=== PATIENT | male | born 1945 | race Caucasian/White ===

== ENCOUNTER → 2016-04-29 | Outpatient (CLI) | payer OTHER, BC ==
[~2016-04-29] MED LIST: ASPI81TA28 PO; ATOR-24 PO; FERR325T51 PO; FURO-85 PO; GUAI1TAB69 PO; LEVO1TAB35 PO; LSN20 PO; MAGN400T6 PO; NITR0.4S UT; OMEGCAP2 PO; OXYC-57 PO; PANT40TA PO; RIVA1TAB4 PO; TPRSR/25 PO
[2016-04-29 13:28] VITALS: BP_SYST 111; BP_SYST 86; BP_DIAS 54; BP_DIAS 59; PULSE 44; TEMP 36.8; O2SAT 93
--- NOTE | 2016-04-29 16:40 | Radiation Oncology Follow-Up ---
Radiation Oncology Follow-Up Date of Visit Apr 29, 2016. 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 Mcdowell is a 71-year-old gentleman with a previous diagnosis of stage IIIA non-small cell lung carcinoma treated with chemotherapy and radiation therapy which completed in October 2014. He subsequently received 2 cycles of adjuvant carboplatin/Taxol chemotherapy underneath the supervision of Dr. Shukla. We are now seeing the patient in follow-up evaluation. Overall, the patient is doing relatively well. He states he has no difficulty with shortness of breath, hemoptysis, fevers, chills or night sweats. He states that his weight is stable. His appetite is good. He denies any dysphagia. He has no other complaints. He did mention he recently had a PET/CT scan done in was already alerted about the results. He is scheduled to see Dr. Shukla in August 2016. Allergies Coded Allergies: No Known Allergies (Verified , 11/20/15) Home Medications Scheduled Aspirin (Aspirin Ec), 81 MG PO QAM Atorvastatin (Lipitor), 40 MG PO HS Ferrous Sulfate (Iron Supplement), 325 MG PO Q2D Furosemide (Lasix), 20 MG PO Q2D Lisinopril (Lisinopril), 20 MG PO QAM Magnesium Oxide (Mag-Ox), 400 MG PO Q2D Metoprolol Succinate (Metoprolol Succinate ER), 25 MG PO QAM [place]-3 Fatty Acids (Fish Oil), 1 CAP PO HS Rivaroxaban (Xarelto), 20 MG PO QPM Scheduled PRN Nitroglycerin (Nitrostat), 0.4 MG UT UD PRN for Chest Pain Review of Systems Gastrointestinal: Symptoms: WNL Oral: Symptoms: No Problems Respiratory: Symptoms: WNL Urinary: Symptoms: WNL Skin: Symptoms: No Problems Physical Exam Vital Signs Date Time Temp Pulse Resp B/P Pulse Ox O2 Delivery O2 Flow Rate FiO2 04/29/16 13:28 36.8 44 16 86/54 93 111/59 Pain: Side: Left Pain Location: None Patient Pain Scale: 0 - 10 Initial Pain Intensity: 1.0 General Appearance: WD/WN, no apparent distress Eyes: normal inspection ENT: normal ENT inspection, hearing grossly normal, TMs normal Neck: supple, no adenopathy Respiratory/Chest: chest non-tender, lungs clear, normal breath sounds, no respiratory distress Cardiovascular: regular rate, rhythm, no edema, no gallop, no JVD Neurologic/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: 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 as tested, no motor/sensory deficits, alert, normal mood/affect, oriented x 3 Laboratory Studies Test 04/02/16 08:45 White Blood Count 6.13 K/uL (4.8-10.8) Red Blood Count 4.77 M/uL (4.7-6.1) Hemoglobin 14.5 g/dL (14.0-18.0) Hematocrit 42.7 % (42-52) Mean Corpuscular Volume 89.5 fL (80-100) Mean Corpuscular Hemoglobin 30.4 pg (25-34) Mean Corpuscular Hemoglobin Concent 34.0 g/dl (32-36) RDW Standard Deviation 44.8 fL (36.4-46.3) RDW Coefficient of Variation 13.7 % (11.5-14.5) Platelet Count 205 K/uL (130-400) Mean Platelet Volume 10.0 fL (7.4-10.4) Sodium Level 142 mmol/L (136-145) Potassium Level 4.1 mmol/L (3.5-5.1) Chloride Level 107 mmol/L (98-107) Carbon Dioxide Level 27 mmol/L (21-32) Anion Gap 8.0 mmol/L (3-11) Blood Urea Nitrogen 28 mg/dl (7-18) Creatinine 1.30 mg/dl (0.60-1.40) Estimated GFR () 64.5 Estimated GFR (Non- 55.7 BUN/Creatinine Ratio 21.5 (10-20) Random Glucose 109 mg/dl (70-99) Calcium Level 9.6 mg/dl (8.5-10.1) Total Bilirubin 0.8 mg/dl (0.2-1) Aspartate Amino Transferase (AST) 20 U/L (15-37) Alanine Aminotransferase (ALT) 25 U/L (12-78) Alkaline Phosphatase 69 U/L (45-117) Total Protein 7.6 gm/dl (6.4-8.2) Albumin 4.2 gm/dl (3.4-5.0) Globulin 3.4 gm/dl (2.5-4.0) Albumin/Globulin Ratio 1.2 (0.9-2) Triglycerides Level 102 mg/dl (0-150) Cholesterol Level 117 mg/dl (0-200) HDL Cholesterol 37 mg/dl LDL Cholesterol, Calculated 60 mg/dl VLDL Cholesterol, Calculated 20 mg/dl Cholesterol/HDL Ratio 3.2 Additional Studies XAM PET CT SKULL BASE TO MID THIGH - 03/26/2016 1:06 pm HISTORY Lung cancer, status post chemo radiation. Subsequent treatment strategy. DATE OF DICTATION:03/26/2016 COMPARISON PET/CT 09/26/2015. TECHNIQUE Following the intravenous administration of approximately 14.2 mCi of FDG 18 and the oral administration of Gastroview, PET/CT imaging was performed from the skull base to the mid thighs 70 minutes following the radiotracer injection. The patient's glucose level at the time of radiotracer injection was 139 mg/dL. This is a follow up PET/CT for the above indication. FINDINGS Head / Neck: No hypermetabolic lesion is identified. Punctate calcifications/ calculi are identified in the bilateral palatine tonsils. Chest: No hypermetabolic lesion is identified. The background activity is again noted in postradiation fibrosis in the left lung perihilar region, involving the left upper lobe and superior segment of left lower lobe. Unchanged mild atelectasis/fibrosis in the medial aspect of the right lung. There is background activity in small left pleural effusion which is new. Redemonstration of a small to moderate pericardial effusion, not significantly changed. Redemonstration of epicardial calcification in the lateral wall of the left ventricle. Vascular calcification is again noted in the coronary arteries and aorta. There is a left upper chest wall port terminating in the SVC. Abdomen: No hypermetabolic lesion is identified. No evidence of lymphadenopathy, ascites, hydronephrosis or bowel obstruction. Diffuse calcific plaque in the aorta. 2.6 cm ectasia of the infrarenal aorta. Pelvis: No hypermetabolic lesion is identified. No pelvic lymphadenopathy or ascites. Small right hydrocele. Musculoskeletal / Other: No hypermetabolic lesion is identified. Old fracture of right posterior 11th rib. Mild diffuse degenerative changes in spine. IMPRESSION No evidence of metabolically active recurrent disease. Post radiation therapy changes in the left lung. Small left pleural effusion, new. Small to moderate pericardial effusion, unchanged. Assessment & Plan Mr. Mcdowell is a 71-year-old gentleman who presents with locally advanced non- small cell lung carcinoma treated with chemotherapy and radiation therapy which completed in October 2014 followed by adjuvant chemotherapy underneath the supervision of Dr. Shukla. The patient has done well and most recently had a PET /CT scan completed in March 2016 which shows no evidence of disease. We are happy with the patient's progress overall. The patient has tolerated with minimal late side effects from radiation therapy. The patient is scheduled to see Dr. Shukla in August 2016 who is ordering his scans routinely. At this point, we have recommended the patient continue to see a physician every 4-6 months regarding his lung cancer management and surveillance. We will see the patient back in one year since he continues to follow closely with Dr. Shukla for medical oncology. I encouraged the patient to call me with any questions or concerns or if he would like to be seen earlier. Total Time In Follow-Up I spent 20 minutes examining and counseling the patient. I spent 15 minutes completing this note. Copy To Rico Neff M.D.; Rusty Shukla M.D.
== END | disposition home or self-care (01) ==
LOC: C.ONC 13:03
PROVIDERS: ATTEND Radiology Radiation Oncology
DX: Z08 Encounter for follow-up examination after completed treatment for malignant neoplasm (principal); Z92.3 Personal history of irradiation; Z85.118 Personal history of other malignant neoplasm of bronchus and lung

== ENCOUNTER → 2017-04-30 | Outpatient (CLI) | payer OTHER, BC ==
[~2017-04-30] MED LIST changes: -GUAI1TAB69 PO; -LEVO1TAB35 PO; -OXYC-57 PO; -PANT40TA PO
[2017-04-30 13:28] VITALS: BP 108/61; PULSE 48; TEMP 36.9; O2SAT 96
--- NOTE | 2017-04-30 14:57 | Radiation Oncology Follow-Up ---
Radiation Oncology Follow-Up Date of Visit Apr 30, 2017. 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 Mcdowell fell on the ice in March of 2014. He presented to the emergency department where chest x-ray was performed and fractured ribs were found. Also noted were pulmonary nodules. This prompted a CT scan of the chest performed on 2013. This was without contrast. This showed a 1.1 cm lobulated nodule within the left upper lobe and an indeterminate 4 mm nodule within the right upper lobe. Additional studies were recommended. A PET/ CT scan was subsequently performed on 04/19/2014. This showed no significant FDG uptake within the previously described 1.1 cm left upper lobe nodule that was less conspicuous than on the previous study. A 3 mm left upper lobe nodule and a 4 mm right upper lobe nodule were felt to be too small to evaluate pet imaging. There is marked left infrahilar FDG uptake with an SUV max of 14.6 that could reflect harry uptake without pathologically enlarged nodes identified. There is mild FDG uptake within a minimally enlarged aortopulmonary window lymph node measuring 1.1 cm and an SUV max of 7.2. There is moderate FDG uptake within a precarinal lymph node measuring 0.7 cm an SUV max of 7.5. No suspicious uptake is noted in the abdomen and pelvis or in the musculoskeletal system. He was subsequently noted however that the IV infiltrated and the patient was reinjected which may have altered the SUV values. The patient was sent to the pulmonary clinic at [facility] for further evaluation and diagnostic workup. On patient underwent a bronchoscopy and a bus evaluation. This revealed hilar adenopathy on the left side, paratracheal adenopathy. A biopsy of the left paratracheal for L lymph node was performed. This was positive for squamous cell carcinoma. Immunohistochemical assay was demonstrating the tumor cells are strongly and diffusely positive for PE 40 and negative for TTF-1 and CK 7. Patient was subsequently evaluated by to see if surgery was a and option. Patient was also seen by Dr. Rusty Shukla for medical oncology evaluation. Following the NCCN Guidelines the patient was felt to have at least a clinical stage IIIa disease consisting of a clinical T1 a, pN 2 M0 disease. A brain scan was recommended and a MRI was performed and was negative for metastatic disease. Based on these findings and after presentation at the multidisciplinary lung cancer clinic tumor conference he was not felt to be a surgical candidate. Recommendation was for consideration of primary chemoradiation. Dr. Shukla is recommending weekly Taxol and carboplatin during the radiation followed by 2 cycles of Taxol and carboplatin following the completion of his radiation. He completed radiation therapy 09/13/2014. This was combined with weekly Taxol and carboplatin. He tolerated this well and went on to have adjuvant chemotherapy that completed 11/03/2014. Interim History He is been doing well over this past year. He denies any changes respiratory status. He has no increasing shortness of breath. No problems with chronic cough. 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 This is unchanged. He has had follow-up visits with medical oncology and had a recheck PET CT scan in March. PET scans have been rechecked every 6 months. There was no evidence of metastatic disease or recurrence. He'll now be followed by Dr. Collazo in medical oncology. His appetite is good and weight is stable. Allergies Coded Allergies: No Known Allergies (Verified , 11/20/15) Home Medications Scheduled Aspirin (Aspirin Ec), 81 MG PO QAM Atorvastatin (Lipitor), 40 MG PO HS Ferrous Sulfate (Iron Supplement), 325 MG PO Q2D Furosemide (Lasix), 20 MG PO Q2D Lisinopril (Lisinopril), 20 MG PO QAM Magnesium Oxide (Mag-Ox), 400 MG PO DAILY Metoprolol Succinate (Metoprolol Succinate ER), 25 MG PO QAM [facility]-3 Fatty Acids (Fish Oil), 1 CAP PO HS Rivaroxaban (Xarelto), 20 MG PO QPM Scheduled PRN Nitroglycerin (Nitrostat), 0.4 MG UT UD PRN for Chest Pain Review of Systems Gastrointestinal: Symptoms: WNL Oral: Symptoms: No Problems Respiratory: Symptoms: WNL Urinary: Symptoms: WNL Skin: Symptoms: No Problems Physical Exam Vital Signs Date Time Temp Pulse Resp B/P (MAP) Pulse Ox O2 Delivery O2 Flow Rate FiO2 04/30/17 13:28 36.9 48 16 108/61 96 Fatigue: None General Appearance: no apparent distress Eyes: normal inspection, EOMI ENT: normal ENT inspection, hearing grossly normal Neck: no adenopathy, thyroid normal Respiratory/Chest: lungs clear, no respiratory distress, no accessory muscle use, + decreased breath sounds Cardiovascular: no gallop, no murmur, + irregularly irregular Abdomen: non tender, soft, no organomegaly Extremities: no pedal edema Neurologic/Psychiatric: no motor/sensory deficits, alert, normal mood/affect Skin: warm/dry Pain Management Patient Reports Pain: No Pain Location: None Patient Preferred Pain Scale: 0 - 10 Initial Pain Intensity: 0.0 Pain Management Plan He denies pain therefore requires no pain management. Laboratory Laboratory Results: not applicable Pathology Pathology Results: not applicable Imaging Imaging Studies: were reviewed, and pertinent findings noted below Imaging Comments Results PET CT, SKULL BASE TO MID-THIGH [77561.33 (CPT)] (Spec. #[id number]) (Order [id number]) Date/Time of Imaging Study Study Completed: 03/18/2017 10:49 AM [employer] PACS Image Narrative EXAM PET CT SKULL BASE TO MID THIGH FDG - 03/18/2017 10:49 am HISTORY 72-year-old man, followup non-small cell lung carcinoma status post chemoradiation therapy. COMPARISON Multiple prior FDG PET/CT scans, the most recent dated 09/17/2016 and the most remote dated 04/19/2014. TECHNIQUE Following the intravenous injection of 9.14 millicuries of F-18 FDG via the right antecubital vein, PET imaging was performed with CT attenuation from the skull base through the mid thigh. Imaging was performed 60 minutes after injection of the radiopharmaceutical. Nondiagnostic transaxial CT images were obtained through the neck, chest, abdomen and pelvis for the purposes of attenuation correction and anatomic localization. The patient's glucose level at the time of the injection was 130 mg/dl. FINDINGS PET: Head/Neck: Mild uptake in the palatine tonsils, may be inflammatory or physiologic appear Physiologic FDG activity is otherwise present within the visualized brain, salivary glands, and pharyngeal mucosa. No metabolically active cervical lymphadenopathy. Chest: No abnormal metabolically active disease in the left hilum. Notable resolution of previously seen left atrial appendage FDG avidity. No metabolically active pulmonary nodules. No metabolically active axillary, hilar, or mediastinal lymphadenopathy. Abdomen/Pelvis: Physiologic FDG activity is present within the gastrointestinal and genitourinary system. No metabolically active abdominal or pelvic lymphadenopathy. No metabolically active intraperitoneal mass. Musculoskeletal: No abnormal focal FDG activity localizes to the bones. No aggressive osseous abnormality. Patchy polyarticular uptake in a degenerative/inflammatory pattern. CT: CT NECK: Cervical spine spondylitic changes, incompletely evaluated. Carotid atherosclerotic disease. Chronic bilateral palatine tonsil calcifications. CT CHEST: Left chest wall MediPort terminating in the lower SVC. Stable posttreatment related changes in the left lung and hilum including left lower lobe volume loss, bronchiectasis and replacement with confluent soft tissue. There are scattered left upper lobe pulmonary nodules and ill-defined ground-glass opacities, most notably a 6 mm nodule on image #[id number], similar to the 09/26/2015 study. Mild biapical emphysematous changes. Stable moderate volume pericardial effusion. Aortic root calcifications. Calcific coronary artery and aortic atherosclerotic disease. Stable epicardial calcifications in the lateral free wall of the left ventricle. Old right posterolateral 11th rib fracture. Stable gynecomastia. CT ABDOMEN/PELVIS: Small hiatal hernia. Small bowel anastomotic segment again noted. Inferior splenule. Mildly enlarged central and right lower quadrant mesenteric root lymph nodes are stable over multiple prior examinations. Stable right hydrocele. Stable prostatic calcifications. Aortic atherosclerotic calcifications. Anterior abdominal postsurgical changes. Polyarticular degenerative changes. IMPRESSION 1. No evidence of metabolically active malignancy in the chest or metabolically active metastases. 2. Grossly stable posttreatment related changes in the left hilum and left lung. 3. Additional CT findings, as above. I have personally reviewed this examination and agree with the resident/fellow physician's interpretation. Resident Physician: CLIFF VICTOR [[id number]] Radiologist: FLORA VÁQSUEZ MD [[id number]] Authenticated By Authenticating Date Authenticating Time Reading Providers(s) FLORA VÁSQUEZ MD 03-18-2017 12:14 FLORA VÁSQUEZ MD Assessment & Plan Plan: Continue regular follow-up with medical oncology. He'll be seeing Dr. Collazo now that Dr. Shukla has retired. Recheck scanning her medical oncology. PET CTs have been rechecked every 6 months. Continue regular follow-up with his primary care physician. We asked him to return to our office in 1 year. He may call if he has any questions or concerns in the interim. Total Time In Follow-Up I spent 20 minutes speaking to the patient and performing examination. I spent 15 minutes reviewing information and completing this note. Copy To Alena Panchal PA-C; Lokesh Collazo M.D. 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
== END | disposition home or self-care (01) ==
LOC: C.ONC 12:38
PROVIDERS: ATTEND Physician Assistant Medical
DX: Z08 Encounter for follow-up examination after completed treatment for malignant neoplasm (principal); Z92.3 Personal history of irradiation; Z85.118 Personal history of other malignant neoplasm of bronchus and lung

== ENCOUNTER 2018-09-16 08:16 | Inpatient (IN) ==
--- NOTE | 2018-09-16 09:01 | XRay Report ---
XR chest 1V portable CLINICAL HISTORY: Chest pain. COMPARISON STUDY: Chest CT July 30, 2018. Chest radiograph September 14, 2018. FINDINGS: There is no pneumothorax. There are trace bilateral pleural effusions. Moderate enlargement of the cardiac silhouette is unchanged. Interstitial thickening has developed with Rtino B lines. L eft suprahilar opacity appears slightly increased IMPRESSION: 1. Interval development of mild interstitial edema with trace bilateral pleural effusions. Stable enl argement of the cardiac silhouette. 2. Apparent increase in left suprahilar opacity. This favors postradiation change however should be a ssessed on subsequent exams to ensure stability. 3. Interval development of mild left basilar opacity which may reflect atelectasis or pneumonia. Electronically signed by: Charan Hernandez M.D. 09/16/2018 9:00 AM
[2018-09-16 09:06] LABS: INR 1.5 (0.9-1.1); Partial Thromboplastin Ratio 1.3; Prothrombin Time 14.6 Seconds (9.0-12.0)
[2018-09-16 09:08] LABS: Albumin Level 3.7 gm/dl (3.4-5.0); BUN Creatinine Ratio 22.6 (10-20); Calcium 9.6 mg/dl (8.5-10.1); Creatinine Clr Calc Pharmacy 51.3 ml/min; Est GFR (African American) 49.9; Potassium 4.5 mmol/L (3.5-5.1)
[2018-09-16 09:24] LABS: Bilirubin,Total 0.7 mg/dl (0.2-1); Globulin 3.7 gm/dl (2.5-4.0); Total Protein 7.4 gm/dl (6.4-8.2); Troponin I 0.076 ng/ml (0-0.045)
[2018-09-16] MEDS ORDERED: ASPIRIN CHEW 324 MG PO STA (09:37)
[2018-09-16 09:52] LABS: Hematocrit (blood only) 37.1 % (42-52); Hemoglobin 12.8 g/dL (14.0-18.0); Immature Granulocytes # (auto) 0.02 K/uL (0.00-0.02); Immature Granulocytes % (auto) 0.2 %; Lymphocytes # (auto) 0.53 K/uL (1.2-3.4); Lymphocytes % (auto) 4.5 %; Mean Corpuscular Hgb Conc 34.5 g/dL (32-36); Mean Corpuscular Volume 87.1 fL (80-100); Mean Platelet Volume 10.3 fL (7.4-10.4); Monocytes # (auto) 0.32 K/uL (0.11-0.59); Monocytes % (auto) 2.7 %; Neutrophils # (auto) 10.99 K/uL (1.4-6.5); Neutrophils % (auto) 92.6 %; Platelet Count 261 K/uL (130-400); RDW Coefficient of Variation 13.3 % (11.5-14.5); RDW Standard Deviation 42.3 fL (36.4-46.3); Red Blood Count 4.26 M/uL (4.7-6.1); White Blood Count 11.86 K/uL (4.8-10.8)
[2018-09-16] MEDS ORDERED: DOXYCYCLINE HYCLATE 100 MG in DEXTROSE 5% 100 ML IV STA (09:55)
[2018-09-16] MEDS ORDERED: CEFEPIME 2,000 MG/20 ML VIAL IV STA (09:55)
--- NOTE | 2018-09-16 10:56 | History & Physical Report ---
Date of Service September 16, 2018 Assessment & Plan (1) Pneumonia: 73 y/o M Hx systolic CHF, CAD, Afib/flutter, HTN, HLD, lung CA, chronic pericardial effusion. Presents with progressive dyspnea and was mildly hypoxic on arrival to the ER. Reports a productive cough without fevers x 3 weeks which he states followed some sinus congestion. The pt has had dyspnea for several months. This initially led to his R heart cath. It is unclear if his dyspnea is affected by the effusion. A CXR obtained in the ER appears to show a developing effusion in the RLL. Additional labs are notable for mild ARMANDO and an elevated troponin which looks to be chronic. 1) Dyspnea - may be multifactorial. We will treat for PNM with antibiotics and nebs. He takes steroids daily and we have increased his dose. He is assigned to telemetry with an 02 protocol. Sputum cultures are pending. 2) CAD - elevated trop - elevation may be chronic - we will trend and obtain an echo if this trends up - he will continue metoprolol and is anticoagulated with Xarelto. 3) AF/flutter - rate is controlled at 59 - cont metoprolol, Xarelto 4) Reg his pericardial effusion. If his dyspnea and hypoxia do not improve with treatment of a resp source, we would consult cardiology. 5) CHF - mild overload on XR but not clinically - cont Lasix AM 6) Mild ARMANDO - may need to hold diuretic AM if this shows any worsening Full code - Xarelto prophylaxis Total time for this admit including review of labs, meds, imaging, records - discussion with pt and ER attending - 39 min Present on Admission?: Yes History of Present Illness Chief Complaint: Dyspnea Primary Care Provider: MORRO Hopson 73 y/o M Hx systolic CHF, CAD, Afib/flutter, HTN, HLD, lung CA, chronic pericardial effusion. Presents with progressive dyspnea and was mildly hypoxic on arrival to the ER. Reports a productive cough without fevers x 3 weeks which he states followed some sinus congestion. The pt has had dyspnea for several months. This initially led to his R heart cath. It is unclear if his dyspnea is affected by the effusion. A CXR obtained in the ER appears to show a developing effusion in the RLL. Additional labs are notable for mild ARMANDO and an elevated troponin which looks to be chronic. PMH: 1) Systolic CHF - last EF on record 40% 2) Chronic pericardial effusion - R cath 05/25 did not demonstrate hemodynamic significance 3) Afib/flutter - chronic - Xarelto 4) CKD II-III 5) Lung CA - remission since 2013 - treated with chemo and radiation. 6) CAD - MD - stents placed in 2005 and 2007 7) HTN 8) HLD Surgical: Hernia repair Social: Quit smoking 2004 Family: Father due to a CA Mother due to CA and DM Allergies Allergy/AdvReac Type Severity Reaction Status Date / Time No Known Allergies Allergy Verified 09/16/18 10:08 Home Medications Home Medications Medication Instructions Recorded Confirmed Type aspirin [Aspir-81] 81 mg PO QAM 07/30/18 09/16/18 History atorvastatin 40 mg PO HS 07/30/18 09/16/18 History ferrous sulfate 325 mg PO Q2D 07/30/18 09/16/18 History furosemide 40 mg PO QAM 07/30/18 09/16/18 History lisinopril 20 mg PO QAM 07/30/18 09/16/18 History metoprolol succinate 25 mg PO QAM 07/30/18 09/16/18 History omega [id number] oil [Fish Oil] 1 cap PO QAM 07/30/18 09/16/18 History rivaroxaban [Xarelto] 20 mg PO PM 07/30/18 09/16/18 History albuterol sulfate [Ventolin HFA] 2 puff INHALATION Q4H PRN 09/16/18 09/16/18 History colchicine 0.6 mg PO UD 09/16/18 09/16/18 History fluticasone propionate 2 spray INTRANASAL QAM 09/16/18 09/16/18 History guaifenesin [Mucinex] 600 mg PO Q12H PRN 09/16/18 09/16/18 History magnesium oxide 600 mg PO QAM 09/16/18 09/16/18 History prednisone 20 mg PO BID 09/16/18 09/16/18 History Past Med/Surg History Medical History Malignant neoplasm of lung (Chronic) Coronary artery disease (Chronic) Hypertension (Chronic) Cervical radiculopathy (Acute) Contusion of rib on right side (Acute) Corneal abrasion, right (Acute) Epistaxis (Acute) Neutropenia (Acute) Peripheral edema (Acute) Pulmonary nodule, left (Acute) Sensation of foreign body in throat (Acute) 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 (Resolved 05/22/14) "Fall with rib fracture Finding of pulmonary nodules Status post bronchoscopy and biopsy 05/22/2014 squamous cell CA Staging workup reveals clinical stage IIIA Not a surgical candidate Status post combined radiation and chemotherapy Chemotherapy comprised of weekly Taxol and carboplatin Radiation completed 09/13/2014 received 6300 cGy Continued systemic chemotherapy this will complete 11/03/2014" On 10/18/14 14:37 Yusra Barajas wrote "Fall with rib fracture Finding of pulmonary nodules Status post bronchoscopy and biopsy 05/22/2014 squamous cell CA Staging workup reveals clinical stage IIIA Not a surgical candidate Status post combined radiation and chemotherapy Chemotherapy comprised of weekly Taxol and carboplatin Radiation completed 09/13/2014 received 6300 cGy Continued systemic chemotherapy this will complete 11/03/2014" On 09/15/14 17:56 Yusra Barajas wrote "Fall with rib fracture Finding of pulmonary nodules Status post bronchoscopy and biopsy 05/22/2014 squamous cell CA Staging workup reveals clinical stage IIIA Not a surgical candidate Status post combined radiation and chemotherapy Chemotherapy comprised of weekly Taxol and carboplatin Radiation completed 09/13/2014 received 6300 cGy" Thrombocytopenia (Acute) SOB (shortness of breath) (Inactive) Arthritis Borderline diabetic Family History Other Family history non-contributory Social History Preferred Language: Lithuanian Communication Ability: Effective Neurological Surgery Teacher Required: No Beliefs That Will Affect Care: None marital status: Single Current Living Situation: Family current occupational status: retired Feels Safe at Home: Yes Safety Concerns: Feels Safe At This Time Smoking Status: Former smoker Tobacco Type: cigarettes Cigarettes Per Day: 40 Do You Dip or Chew Tobacco: No Smoking End Date: 2007 Second Hand Exposure: No Tobacco Cessation Education Requested by Patient: No Hx Alcohol Use: No Hx Substance Use: No Review of Systems Review of Systems: Gen: Denies fevers, night sweats, rigors, fatigue, malaise, weight loss/gain ENT: + congestion, throat pain, hearing loss Eyes: Denies acute visual changes CV: Denies CP, palpitations Pulmonary: + productive cough an progressive dyspnea - several months GI: Denies N/V, diarrhea, constipation Neuro: Denies acute or unilateral weakness, acute gait impairment, headache or acute visual changes Musculoskeletal: Denies joint pain, inflammation Endocrine: Denies polydipsia, polyuria Skin: Denies acute rashes or ulcers Physical Exam Physical Exam: General: Pleasant, elderly M, AAO x 3, no distress ENT: No erythema or exudates, no thrush Eyes: DOT, EOMI Head and neck: Normocephalic, atraumatic, No JVD, neck is supple. Chest/heart: Nontender, S1,2, RRR, no murmurs, no gallops - port in L chest Lungs: Poor air moveent without crackles or wheezing Abdomen: Nontender, nondistended, BS+ Neuro: AAO x 3, speech is clear, no unilateral weakness or loss of sensation, coordination intact Musculoskeletal: No joint inflammation, muscle tenderness, FROM Skin: No acute rashes or ulcers Extremities: No clubbing, cyanosis, edema Results & Data Vital Signs (Past 12 Hours) Vital Signs Temp Pulse Resp BP Pulse Ox 09/16/18 09:40 96 09/16/18 09:37 88 L 09/16/18 09:31 58 L 18 105/55 L 93 09/16/18 09:30 65 25 H 09/16/18 09:28 59 L 21 108/51 L 93 09/16/18 09:00 20 90 09/16/18 08:26 98.4 F 77 16 110/48 L 93 09/16/18 08:20 72 14 110/48 L 94 Diagnostic Findings CXR: 1. Interval development of mild interstitial edema with trace bilateral pleural effusions. Stable enlargement of the cardiac silhouette. 2. Apparent increase in left suprahilar opacity. This favors postradiation change however should be assessed on subsequent exams to ensure stability. 3. Interval development of mild left basilar opacity which may reflect atelectasis or pneumonia. EKG: Flutter - 59BPM - normal voltage (1) Pneumonia Laterality: unspecified laterality Lung location: unspecified part of lung Pneumonia type: due to unspecified organism Qualified Code(s): J18.9 - Pneumonia, unspecified organism
[2018-09-16] MEDS ORDERED: ACETAMINOPHEN 325 MG TAB PO PRN (13:08)
[2018-09-16] MEDS ORDERED: ALBUTEROL 0.083% NEBU SOLN 3 ML VIAL NEB PRN (13:08)
[2018-09-16] MEDS ORDERED: MAGNESIUM HYDROXIDE SUSP 30 ML UDC PO PRN (13:08)
[2018-09-16] MEDS ORDERED: ALUMINUM/MAGNESIUM SUSP 30 ML UDC PO PRN (13:08)
[2018-09-16] MEDS: ALBUT/IPRATROP 3MG/0.5MG NEB 3 ML VIAL NEB SCH ×3 (13:38→18:53)
[2018-09-16] MEDS ORDERED: COLCHICINE 0.6 MG TAB PO ONE ×2 (14:15→15:15)
[2018-09-16] MEDS: LEVOFLOXACIN/D5W 750 MG/150 ML BAG IV SCH (14:20)
--- NOTE | 2018-09-16 14:59 | Emergency Department Note ---
Entered by Rose Zhang acting as a scribe for ED Provider Note CHIEF COMPLAINT: SOB HISTORY OF PRESENT ILLNESS: The patient is a 73 year old male who presents to the Emergency Room with complaints of worsening shortness of breath that began several weeks ago. The patient reports that this was intermittent at first but that it has been more frequent with time. He states that she he has had an associated chest pain which he describes as tightness. He also notes that he has had a severe neck pain which he rates an 8-9/10. He reports that his symptoms are exertional and explains that he has experienced episodes when showering last night and taking out the trash this morning. He states that he was evaluated at this hospital about 2 weeks ago for the same. He notes that he did have some back pain today. He reports that he has a history of a-fib, MO, as well as lung cancer and follows up with Dr. Collazo and Dr. Calvillo. He states that he does have a cough as well. He notes that he is currently on Xarelto. He also reports that he has been using his inhaler and that it has not been helping. The patient denies trouble moving bowels, black or bloody stools, urinary symptoms, fevers, chills, headaches, rashes, acute numbness or weakness, or other complaints. REVIEW OF SYSTEMS: See HPI for pertinent positives and negatives. A total of ten systems were reviewed and were otherwise negative. PMHx/PSHx: MO A-fib Lung cancer CAD Pericardial effusion Neuropathy COPD SOCIAL HISTORY: Patient lives at home. Former smoker. PHYSICAL EXAM: GENERAL: Awake, alert, well-appearing, in no distress HENT: Normocephalic, atraumatic. Oropharynx unremarkable. EYES: PERRL. Normal conjunctiva. Sclera non-icteric. NECK: Inspection normal. Non-tender. Supple. No nuchal rigidity. FROM. No masses. RESPIRATORY: Clear to auscultation. No wheezes. No rales. Normal respiratory effort. CARDIAC: Normal rate, irregular rhythm. Systolic ejection murmurs. No rubs. Extremities warm and well perfused. Pulses equal. No JVD. GI: Soft, non-distended. No tenderness to palpation. No rebound or guarding. No masses. RECTAL: Deferred. MUSCULOSKELETAL: Atraumatic. Chest examination reveals no tenderness. The back is symmetrical on inspection without obvious abnormality. Port in left upper chest. No joint edema. LOWER EXTREMITIES: Calves are equal size bilaterally and non-tender. No edema. No discoloration. Subjective tingling in his feet. NEURO: Normal sensorium. No sensory or motor deficits noted. SKIN: No rash or jaundice noted. EMERGENCY DEPARTMENT COURSE: 843: The patient was evaluated in room A2, and a complete history and physical examination were performed. EMR was also reviewed and showed that the patient was evaluated at this hospital in July of this year and had a CTPE performed which showed no pulmonary emboli. There was moderate pericardial effusion which was similar to September 2017. He also had a right heart cath done in May. 55: I reviewed the patient's case with Dr. Calvillo - Cardiology. He recommends admission of the patient as well as an echo and aspiring. 0952: The patient is resting comfortably and is currently getting an echo. Dr. Calvillo is at bedside. 1014: I reviewed the patient's case with Dr. Concepcion - [facility] Hospitalist. He will evaluate the patient for further management. MEDICAL DECISION MAKING: Prior records/ancillary studies reviewed. The patient's nuclear stress test from last month revealed that he obtained 50% of his predicted heart rate. Patient had a right heart catheterization done in May of this year and there was no significant issues noted with his pericardial effusion at that time. Triage Nursing notes reviewed and agree them. The patient's history was concerning for chest pain, known pericardial effusion, and history of coronary artery disease/MO. Differential diagnosis: Etiologies such as cardiac ischemia, aortic dissection, pulmonary embolism, pneumonia, pneumothorax, musculoskeletal, infections, pericarditis, myocarditis, esophageal rupture, gastrointestinal, as well as others were entertained. Physical examination: As above. ER treatment provided: Cardiac monitoring On reassessment the patient felt better. Oral aspirin IV cefepime IV doxycycline Diagnostic interpretation by me: The electrocardiogram was negative for acute ischemia change. The labs revealed mild anemia on CBC. The patient has an unremarkable chemistry panel although his creatinine is up slightly. The patient's troponin is elevated. Imaging studies: Chest x-ray performed. Concerning for developing infiltrate. Consultation: A consultation was placed with the cherry cutter on-call, Dr. Calvillo. The case was discussed and diagnostics were reviewed. He recommended holding the patient's Xarelto, initiating aspirin, and admission to the hospital. He has for an echo to be ordered and performed. This was done. A consultation was placed with internal medicine. The patient was evaluated in the ER for further treatment. IMPRESSION: Substernal chest pain, elevated troponin, pneumonia, pericardial effusion. PLAN: Being evaluated by hospitalist The scribe's documentation has been prepared under my direction and personally reviewed by me in its entirety. I confirm that the note above accurately reflects all work, treatment, procedures, and medical decision making performed by me. 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) "Fall with rib fracture Finding of pulmonary nodules Status post bronchoscopy and biopsy 05/22/2014 squamous cell CA Staging workup reveals clinical stage IIIA Not a surgical candidate Status post combined radiation and chemotherapy Chemotherapy comprised of weekly Taxol and carboplatin Radiation completed 09/13/2014 received 6300 cGy Continued systemic chemotherapy this will complete 11/03/2014" On 10/18/14 14:37 Yusra Barajas wrote "Fall with rib fracture Finding of pulmonary nodules Status post bronchoscopy and biopsy 05/22/2014 squamous cell CA Staging workup reveals clinical stage IIIA Not a surgical candidate Status post combined radiation and chemotherapy Chemotherapy comprised of weekly Taxol and carboplatin Radiation completed 09/13/2014 received 6300 cGy Continued systemic chemotherapy this will complete 11/03/2014" On 09/15/14 17:56 Yusra Barajas wrote "Fall with rib fracture Finding of pulmonary nodules Status post bronchoscopy and biopsy 05/22/2014 squamous cell CA Staging workup reveals clinical stage IIIA Not a surgical candidate Status post combined radiation and chemotherapy Chemotherapy comprised of weekly Taxol and carboplatin Radiation completed 09/13/2014 received 6300 cGy" Thrombocytopenia (Acute) SOB (shortness of breath) (Inactive) Arthritis Borderline diabetic Family History Other Family history non-contributory Social History Preferred Language: Kyrgyz Communication Ability: Effective Resin Filterer Required: No Beliefs That Will Affect Care: None marital status: Single Current Living Situation: Family current occupational status: retired Feels Safe at Home: Yes Safety Concerns: Feels Safe At This Time Smoking Status: Former smoker Tobacco Type: cigarettes Cigarettes Per Day: 40 Do You Dip or Chew Tobacco: No Smoking End Date: 2007 Second Hand Exposure: No Tobacco Cessation Education Requested by Patient: No Hx Alcohol Use: No Hx Substance Use: No Results & Data Vital Signs Vital Signs - 24 hr 09/16/18 08:20 09/16/18 08:26 09/16/18 09:00 Temperature 36.9 C Temperature Source Oral Sepsis Recent Fever Within 48 Hours No Sepsis Action Taken by Nursing No Action Required Pulse Rate 72 77 Pulse Rate from SpO2 Sensor 76 59 L Respiratory Rate 14 16 20 Respiratory Effort / Characteristics Non-Labored Respiratory Depth Normal Respiratory Pattern Regular Blood Pressure 110/48 L 110/48 L Blood Pressure Mean 68 68 Blood Pressure Position Lying Pulse Oximetry 94 93 90 Oxygen Delivery Method Room Air Oxygen Flow Rate 09/16/18 09:28 09/16/18 09:30 09/16/18 09:31 Temperature Temperature Source Sepsis Recent Fever Within 48 Hours Sepsis Action Taken by Nursing Pulse Rate 59 L 65 58 L Pulse Rate from SpO2 Sensor 59 L 58 L Respiratory Rate 21 25 H 18 Respiratory Effort / Characteristics Respiratory Depth Respiratory Pattern Blood Pressure 108/51 L 105/55 L Blood Pressure Mean 70 71 Blood Pressure Position Pulse Oximetry 93 93 Oxygen Delivery Method Nasal Cannula Oxygen Flow Rate 2 09/16/18 09:37 09/16/18 09:40 09/16/18 10:00 Temperature Temperature Source Sepsis Recent Fever Within 48 Hours Sepsis Action Taken by Nursing Pulse Rate 59 L Pulse Rate from SpO2 Sensor 59 L Respiratory Rate 22 Respiratory Effort / Characteristics Respiratory Depth Respiratory Pattern Blood Pressure 116/76 Blood Pressure Mean 89 Blood Pressure Position Pulse Oximetry 88 L 96 95 Oxygen Delivery Method Room Air Nasal Cannula Nasal Cannula Oxygen Flow Rate 2 2 09/16/18 10:20 09/16/18 10:30 09/16/18 10:31 Temperature Temperature Source Sepsis Recent Fever Within 48 Hours Sepsis Action Taken by Nursing Pulse Rate 58 L 67 58 L Pulse Rate from SpO2 Sensor 59 L 64 59 L Respiratory Rate 24 23 25 H Respiratory Effort / Characteristics Respiratory Depth Respiratory Pattern Blood Pressure 116/76 96/50 L Blood Pressure Mean 89 65 Blood Pressure Position Pulse Oximetry 92 92 92 Oxygen Delivery Method Nasal Cannula Nasal Cannula Nasal Cannula Oxygen Flow Rate 2 2 2 09/16/18 10:40 09/16/18 11:00 09/16/18 11:01 Temperature Temperature Source Sepsis Recent Fever Within 48 Hours Sepsis Action Taken by Nursing Pulse Rate 61 60 Pulse Rate from SpO2 Sensor 60 60 Respiratory Rate 18 23 Respiratory Effort / Characteristics Non-Labored Respiratory Depth Normal Respiratory Pattern Regular Blood Pressure 115/55 L Blood Pressure Mean 75 Blood Pressure Position Pulse Oximetry 94 95 Oxygen Delivery Method Room Air Nasal Cannula Nasal Cannula Nasal Cannula Oxygen Flow Rate 2 2 2 09/16/18 11:30 Temperature Temperature Source Sepsis Recent Fever Within 48 Hours Sepsis Action Taken by Nursing Pulse Rate 60 Pulse Rate from SpO2 Sensor 59 L Respiratory Rate 24 Respiratory Effort / Characteristics Respiratory Depth Respiratory Pattern Blood Pressure 132/55 L Blood Pressure Mean 80 Blood Pressure Position Pulse Oximetry 94 Oxygen Delivery Method Nasal Cannula Oxygen Flow Rate 2 Home Medications Current Medication List: was personally reviewed by me Laboratory Data Attestation: I reviewed the patient's lab results. Result diagrams: 09/16/18 08:41 09/16/18 08:41 Lab Results 09/16/18 09/16/18 09/16/18 Range/Units 08:41 08:41 08:41 WBC 11.86 H (4.8-10.8) K/uL RBC 4.26 L (4.7-6.1) M/uL Hgb 12.8 L (14.0-18.0) g/dL Hct 37.1 L (42-52) % MCV 87.1 (80-100) fL MCH 30.0 (25-34) pg MCHC 34.5 (32-36) g/dL RDW Std Deviation 42.3 (36.4-46.3) fL RDW Coeff of Tiff 13.3 (11.5-14.5) % Plt Count 261 (130-400) K/uL MPV 10.3 (7.4-10.4) fL Immature Gran % (Auto) 0.2 % Neut % (Auto) 92.6 % Lymph % (Auto) 4.5 % [place] % (Auto) 2.7 % Eos % (Auto) 0.0 % Baso % (Auto) 0.0 % Immature Gran # (Auto) 0.02 (0.00-0.02) K/uL Neut # (Auto) 10.99 H (1.4-6.5) K/uL Lymph # (Auto) 0.53 L (1.2-3.4) K/uL [place] # (Auto) 0.32 (0.11-0.59) K/uL Eos # (Auto) 0.00 (0-0.5) K/uL Baso # (Auto) 0.00 (0-0.2) K/uL PT 14.6 H (9.0-12.0) Seconds INR 1.5 H (0.9-1.1) APTT 34.0 H (21.0-31.0) Seconds PTT Ratio 1.3 Sodium 135 L (136-145) mmol/L Potassium 4.5 (3.5-5.1) mmol/L Chloride 103 (98-107) mmol/L Carbon Dioxide 20 L (21-32) mmol/L Anion Gap 12.0 H (3-11) BUN 36 H (7-18) mg/dl Creatinine 1.59 H (0.6-1.4) mg/dl Est Cr Clr Drug Dosing 51.3 ml/min Est GFR ( Amer) 49.9 Est GFR (Non-Af Amer) 43.0 BUN/Creatinine Ratio 22.6 H (10-20) Glucose 215 H (70-99) mg/dl Calcium 9.6 (8.5-10.1) mg/dl Total Bilirubin 0.7 (0.2-1) mg/dl AST 36 (15-37) U/L ALT 47 (12-78) U/L Alkaline Phosphatase 74 (45-117) U/L Troponin I 0.076 H* (0-0.045) ng/ml Total Protein 7.4 (6.4-8.2) gm/dl Albumin 3.7 (3.4-5.0) gm/dl Globulin 3.7 (2.5-4.0) gm/dl Albumin/Globulin Ratio 1.0 (0.9-2) Lipase 181 (73-393) U/L Administered Medications Albuterol (Duoneb) 3 ml NEB QIDR ARMINDA Stop: 10/16/18 13:29 Last Admin: 09/16/18 13:38 Dose: 3 ml Documented by: [id number] Levofloxacin/Dextrose (Levaquin/D5w) 750 mg in 150 mls @ 100 mls/hr IV Q24H [facility] Stop: 09/23/18 13:59 Last Admin: 09/16/18 14:20 Dose: 100 mls/hr Documented by: [id number] Discontinued Medications Aspirin (Aspirin) 324 mg PO NOW STA Stop: 09/16/18 09:38 Last Admin: 09/16/18 09:56 Dose: 324 mg Documented by: [id number] Colchicine (Colcrys) 1.2 mg PO NOW ONE Stop: 09/16/18 14:16 Last Admin: 09/16/18 14:54 Dose: 1.2 mg Documented by: [id number] Cefepime HCl (Maxipime) 2,000 mg in 20 mls @ 5 mls/min IV NOW STA; Protocol Stop: 09/16/18 09:58 Last Admin: 09/16/18 10:45 Dose: 5 mls/min Documented by: [id number] Doxycycline Hyclate 100 mg/ (Dextrose) 110 mls @ 50 mls/hr IV NOW STA Stop: 09/16/18 12:06 Last Infusion: 09/16/18 12:54 Dose: 0 mls/hr Documented by: [id number] Admin: 09/16/18 10:45 Dose: 50 mls/hr Documented by: [id number] Imaging Data Radiologist's Impression: Radiology results as stated below per my review and the radiologist's interpretation: XR chest 1V portable CLINICAL HISTORY: Chest pain. COMPARISON STUDY: Chest CT July 30, 2018. Chest radiograph September 14, 2018. FINDINGS: There is no pneumothorax. There are trace bilateral pleural effusions. Moderate enlargement of the cardiac silhouette is unchanged. Interstitial thickening has developed with Trino B lines. Left suprahilar opacity appears slightly increased IMPRESSION: 1. Interval development of mild interstitial edema with trace bilateral pleural effusions. Stable enlargement of the cardiac silhouette. 2. Apparent increase in left suprahilar opacity. This favors postradiation change however should be assessed on subsequent exams to ensure stability. 3. Interval development of mild left basilar opacity which may reflect atelectasis or pneumonia. Electronically signed by: Charan Hernandez M.D. 09/16/2018 9:00 AM ECG Data Attestation: I personally reviewed and interpreted this ECG as follows: Indication: chest pain and SOB/dyspnea Rate (beats per minute): 59 Rhythm: atrial flutter Findings: + Q waves (Anteroseptal); no PVC and no ST elevation Blood Pressure Blood Pressure Findings: Low blood pressure Blood Pressure Disposition: further management by hospitalist Discharge Plan Visit Data *Final* Discharge Date/Time: 09/16/18 12:41 Chief Complaint: Shortness of Breath/Dyspnea Stated Complaint: sob ED Provider: Tommy Nunez Discharge Problem: Substernal chest pain, Elevated troponin, Pneumonia, Pericardial effusion Patient Disposition: Admitted As Inpatient Discharge Instructions Interventions: ED Discharge Assessment Last Done: 09/16/18 12:41 Critical Care Time Critical Care Time: Yes Total Critical Care Time: 30 Attestation: I have personally spent 30 minutes of critical care time in the direct management of this patient. This includes bedside care, interpretation of diagnostic studies, and testing, discussion with consultants, patient, and other required patient management activities. These 30 minutes are in excess of all separately billable procedures. Discharge Problem: Pneumonia Qualifiers: Pneumonia type: due to unspecified organism Laterality: unspecified laterality Lung location: unspecified part of lung Qualified Code(s): J18.9 - Pneumonia, unspecified organism The scribe's documentation has been prepared under my direction and personally r eviewed by me in its entirety. I confirm that the note above accurately reflects all work, treatment, procedures, and medical decision making performed by me.
--- NOTE | 2018-09-16 15:51 | Cardiology Consultation ---
Date of Consultation September 16, 2018 Assessment & Plan (1) Non-ST elevation (NSTEMI) myocardial infarction: He has been having worsening dyspnea and also had chest discomfort concerning for angina earlier today. He is currently being treated for pneumonia by hospitalist service. It is concerning however that perhaps his underlying coronary disease and also severe aortic stenosis, could be playing a significant role in his symptoms and also his myocardial infarction. Recommend cardiac catheterization. Risks and benefits were discussed with him, and he was made aware that CT surgery is not available at this facility. He is agreeable to undergo the procedure. Timing of this has not yet been identified. There is no urgent indication and he received Xarelto yesterday. May attempt to do this tomorrow if he feels well and renal function allows. (2) Aortic stenosis: Severe aortic stenosis on echocardiogram performed earlier today. We discussed echo findings. Aortic valve replacement is recommended. Cardiac catheterization recommended as noted above. This could be contributing to his worsening dyspnea with exertion over time and perhaps his chest pain as well. (3) Mitral regurgitation: Moderate mitral regurgitation noted on echo. Prior to evaluation by CT surgery, transesophageal ECHO recommended to further evaluate the mitral valve. May hold off on this for now given his shortness of breath to see if we can improve his symptoms and hypoxia before sedating him more heavily for the transesophageal ECHO. (4) Pericardial effusion: Clinically he does not appear to be in tamponade physiology and in fact, pericardial effusion appears smaller than it has in the past. Monitor over time. (5) CAD (coronary artery disease), rosebud coronary artery: He is status post proximal RCA PCI in 2007 and mid LAD PCI in 2005. Symptoms concerning for angina as above. Continue aspirin 81 mg daily. Con tinue high-intensity statin therapy. Continue beta-milly. (6) Exertional angina: Plan as above with cardiac catheterization when able. Currently asympto matic. (7) Atrial flutter: Rate controlled atrial flutter. Continue anticoagulation but will hold Xarelto in anticipation of cardiac catheterization at some point during this hospitalization. Heparin drip can be started today when Xarelto is due. (8) Pulmonary hypertension: PA pressure was described as normal when he underwent right heart catheterization in May. It is now estimated to be severe on echo. Right heart catheterization recommended at the time of his coronary angiography. (9) SOB (shortness of breath): There is concern for pneumonia by primary hospitalist service. It is also concerning that his symptoms may be related to heart failure or at least underlying coronary disease and aortic stenosis. He may be mildly hypervolemic based on exam however he has had increased diuretic therapy recently and labs now suggest azotemia. As there is consideration for cardiac catheterization tomorrow, will hold off on intravenous diuretics for now, also due to the fact that he does have pericardial effusion and would not want to precipitate hemod ynamic compromise. Filling pressures will be evaluated during cardiac catheterization, if able (monitor renal function) to be done tomorrow. Disposition: Cardiology will continue to follow. Patient care discussed with Dr. Marcano for the primary hospitalist service and also emergency department physician, Dr. Nunez. Highly complex medical issues. Thank you for allowing me to participate in the care of your patient. Please call for any other questions or concerns. Sincerely, Clinton Calvillo M.D. History of Present Illness Reason for Consultation: Pericardial effusion and aortic stenosis with elevated troponin Requesting Physician: Dr. Marcano Attending Physician: Eber Marcano MD History of Present Illness Mr. Mcdowell is a pleasant 73-year-old gentleman with a history significant for CAD status post mid LAD stent and RCA stents x2, cardiomyopathy, atrial flutter, hypertension, pericardial effusion, and dyslipidemia. He also has squamous cell lung carcinoma and has undergone XRT and chemotherapy. He has had the following studies/procedures: 1. Cardiac catheterization 2005: Mid LAD stent at [facility]. 2. Cardiac catheterization 10/01/07: Proximal to mid LAD stent patent. D1 50%. Mid circumflex 100% with extensive bridging collaterals. Prox RCA with healed spiral dissection. Prox RCA 95% followed by severe ectasia. [place] [facility] [place] with TAXUS 3 x 28 mm and TAXUS 3.5 x 32 mm. LVgram described as normal EF (> 55%) and normal wall motion. 3. Echo 01/22/2018: Moderately dilated LV with mildly reduced systolic function. Estimated EF 50%. Akinetic inferolateral wall with thinning. No LVH. The left atrium is mildly dilated. Moderate with trace AI. Mild MR. Large pericardial effusion (> 2 cm) without echocardiographic evidence of jimenez ponade physiology. The largest dimension of the pericardial effusion appears to be posterior and also laterally. 4. Limited ECHO 04/21/18: Mildly dilated LV with low normal systolic function. EF 50%. Akinetic inferolateral wall with thinning. Mild LVH. Moderate left atrial dilation. Large pericardial effusion without echocardiographic evidence of tamponade physiology. Largest dimension of the pericardial effusion appears to be posterior and also laterally. 5. Right heart catheterization 05/17/2018: PA pressure 08/01/2014. PCWP 5. 6. Nuclear stress 07/23/2018: Negative for ischemia. Inferolateral and anteroseptal/apical septal perfusion defect consistent with prior infarcts and multivessel CAD. EF 33%. For the past few months, he has been having progressively worsening dyspnea with exertion. He denies orthopnea or PND. Approximately 3 months ago he states that he had a bad cold. He was seen by his PCP who gave him nebulizer treatments which helped his symptoms. Symptoms persisted later however and worsened. Approximately 1 week ago he had coughing with bloody mucus. Yesterday, his symptoms got much worse, especially last evening which carried over into this morning. He denies shortness of breath if he does not move but even simple activities such as taking a shower is now causing significant dyspnea. He also developed substernal chest pressure this morning after exerting himself that persisted for approximately 30 minutes. This is not a common symptom for him. He believes that his lower extremity edema is stable if. He has not noted any weight gain. Lasix was increased approximately 1 month ago by his PCP from 20 mg every other day to 20 mg daily. Four days ago, Lasix was increased further to 40 mg daily. Despite this, his symptoms have worsened. He denies syncope, near-syncope, palpitations, melena, hematochezia, hematuria, abdominal pain, nausea, vomiting, diarrhea, or fever. He was seen in the emergency department here and was started on antibiotic therapy for concern of pneumonia based on chest x-ray findings and his symptoms. He also underwent echocardiogram which demonstrated severe aortic stenosis. Aortic stenosis was last documented as moderate in 2018. In May he underwent right heart catheterization due to his pericardial effusion as there was consideration for undergoing pericardiocentesis, but the pericardial effusion appeared to be smaller in size compared to office echoes and demonstrated no hemodynamic significance and therefore pericardiocentesis was not performed. His PA pressure was normal during that study. Review of systems: As above. Review of systems otherwise negative/unremarkable. Family history: Father with PR at 54. Brother with cancer (kidney). Sister with brain malignancy. Other sibling with pancreatic CA. Social history: Quit smoking in 2005 after 2 ppd x 30 years. No alcohol or drugs. Not . No children. 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 Lives with brother and sister. Unaccompanied. Allergies Allergy/AdvReac Type Severity Reaction Status Date / Time No Known Allergies Allergy Verified 09/16/18 10:08 Home Medications Home Medications Medication Instructions Recorded Confirmed Type aspirin [Aspir-81] 81 mg PO QAM 07/30/18 09/16/18 History atorvastatin 40 mg PO HS 07/30/18 09/16/18 History ferrous sulfate 325 mg PO Q2D 07/30/18 09/16/18 History furosemide 40 mg PO QAM 07/30/18 09/16/18 History lisinopril 20 mg PO QAM 07/30/18 09/16/18 History metoprolol succinate 25 mg PO QAM 07/30/18 09/16/18 History omega 8-[id number]-brp-fish oil [Fish Oil] 1 cap PO QAM 07/30/18 09/16/18 History rivaroxaban [Xarelto] 20 mg PO PM 07/30/18 09/16/18 History albuterol sulfate [Ventolin HFA] 2 puff INHALATION Q4H PRN 09/16/18 09/16/18 History colchicine 0.6 mg PO UD 09/16/18 09/16/18 History fluticasone propionate 2 spray INTRANASAL QAM 09/16/18 09/16/18 History guaifenesin [Mucinex] 600 mg PO Q12H PRN 09/16/18 09/16/18 History magnesium oxide 600 mg PO QAM 09/16/18 09/16/18 History prednisone 20 mg PO BID 09/16/18 09/16/18 History Patient History Medical History Malignant neoplasm of lung (Chronic) Coronary artery disease (Chronic) Hypertension (Chronic) Cervical radiculopathy (Acute) Contusion of rib on right side (Acute) Corneal abrasion, right (Acute) Epistaxis (Acute) Neutropenia (Acute) Peripheral edema (Acute) Pulmonary nodule, left (Acute) Sensation of foreign body in throat (Acute) 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 (Resolved 05/22/14) "Fall with rib fracture Finding of pulmonary nodules Status post bronchoscopy and biopsy 05/22/2014 squamous cell CA Staging workup reveals clinical stage IIIA Not a surgical candidate Status post combined radiation and chemotherapy Chemotherapy comprised of weekly Taxol and carboplatin Radiation completed 09/13/2014 received 6300 cGy Continued systemic chemotherapy this will complete 11/03/2014" On 10/18/14 14:37 Yusra Barajas wrote "Fall with rib fracture Finding of pulmonary nodules Status post bronchoscopy and biopsy 05/22/2014 squamous cell CA Staging workup reveals clinical stage IIIA Not a surgical candidate Status post combined radiation and chemotherapy Chemotherapy comprised of weekly Taxol and carboplatin Radiation completed 09/13/2014 received 6300 cGy Continued systemic chemotherapy this will complete 11/03/2014" On 09/15/14 17:56 Yusra Barajas wrote "Fall with rib fracture Finding of pulmonary nodules Status post bronchoscopy and biopsy 05/22/2014 squamous cell CA Staging workup reveals clinical stage IIIA Not a surgical candidate Status post combined radiation and chemotherapy Chemotherapy comprised of weekly Taxol and carboplatin Radiation completed 09/13/2014 received 6300 cGy" Thrombocytopenia (Acute) SOB (shortness of breath) (Inactive) Arthritis Borderline diabetic Family History Other Family history non-contributory Social History Preferred Language: Georgian Communication Ability: Effective 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 Alert and oriented. HEENT: Anicteric sclera. Neck: Mild JVD with hepatic jugular reflux. Bilateral bruits vs radiation of cardiac murmur. Normal carotid upstrokes bilaterally. Cardiac: PMI was nonpalpable. No ventricular heave. Regular. Normal S1 and soft S2. 3/6 late peaking systolic ejection murmur heard best at right upper sternal border. No rubs or gallops. Pulmonary: Decreased breath sounds throughout the left lung, but otherwise clear. Abdomen: Soft, nontender, nondistended, with normoactive bowel sounds. No bruits noted. Extremities: 2+ radial pulses bilaterally. 2+ posterior tibialis pulses bilaterally. Trace to 1+ bilateral lower extremity edema. No cyanosis. Psychiatric: Affect appears appropriate. Results & Data Vital Signs (Past 12 Hours) Vital Signs Temp Pulse Pulse Resp BP BP BP 09/16/18 15:18 36.6 C 58 L 18 111/63 09/16/18 13:41 88 16 09/16/18 13:08 36.7 C 60 64 24 120/57 L 09/16/18 12:30 60 22 129/66 09/16/18 12:00 58 L 19 120/68 09/16/18 11:30 60 24 132/55 L 09/16/18 11:01 60 23 09/16/18 11:00 61 18 115/55 L 09/16/18 10:31 58 L 25 H 96/50 L 09/16/18 10:30 67 23 09/16/18 10:20 58 L 24 116/76 09/16/18 10:00 59 L 22 116/76 09/16/18 09:40 09/16/18 09:37 09/16/18 09:31 58 L 18 105/55 L 09/16/18 09:30 65 25 H 09/16/18 09:28 59 L 21 108/51 L 09/16/18 09:00 20 09/16/18 08:26 36.9 C 77 16 110/48 L 09/16/18 08:20 72 14 110/48 L Pulse Ox Pulse Ox 09/16/18 15:18 96 09/16/18 13:41 97 09/16/18 13:08 95 88 L 09/16/18 12:30 95 09/16/18 12:00 95 09/16/18 11:30 94 09/16/18 11:01 95 09/16/18 11:00 94 09/16/18 10:31 92 09/16/18 10:30 92 09/16/18 10:20 92 09/16/18 10:00 95 09/16/18 09:40 96 06/13/19 09:37 88 L 09/16/18 09:31 93 09/16/18 09:30 09/16/18 09:28 93 09/16/18 09:00 90 09/16/18 08:26 93 09/16/18 08:20 94 Laboratory Results Laboratory Results - last 24 hr 09/16/18 09/16/18 09/16/18 08:41 08:41 08:41 WBC 11.86 H RBC 4.26 L Hgb 12.8 L Hct 37.1 L MCV 87.1 MCH 30.0 MCHC 34.5 RDW Std Deviation 42.3 RDW Coeff of Tiff 13.3 Plt Count 261 MPV 10.3 Immature Gran % (Auto) 0.2 Neut % (Auto) 92.6 Lymph % (Auto) 4.5 [place] % (Auto) 2.7 Eos % (Auto) 0.0 Baso % (Auto) 0.0 Immature Gran # (Auto) 0.02 Neut # (Auto) 10.99 H Lymph # (Auto) 0.53 L [place] # (Auto) 0.32 Eos # (Auto) 0.00 Baso # (Auto) 0.00 PT 14.6 H INR 1.5 H APTT 34.0 H PTT Ratio 1.3 Sodium 135 L Potassium 4.5 Chloride 103 Carbon Dioxide 20 L Anion Gap 12.0 H BUN 36 H Creatinine 1.59 H Est Cr Clr Drug Dosing 51.3 Est GFR ( Amer) 49.9 Est GFR (Non-Af Amer) 43.0 BUN/Creatinine Ratio 22.6 H Glucose 215 H Calcium 9.6 Total Bilirubin 0.7 AST 36 ALT 47 Alkaline Phosphatase 74 Troponin I 0.076 H* Total Protein 7.4 Albumin 3.7 Globulin 3.7 Albumin/Globulin Ratio 1.0 Lipase 181 09/16/18 13:55 WBC RBC Hgb Hct MCV MCH MCHC RDW Std Deviation RDW Coeff of Tiff Plt Count MPV Immature Gran % (Auto) Neut % (Auto) Lymph % (Auto) [place] % (Auto) Eos % (Auto) Baso % (Auto) Immature Gran # (Auto) Neut # (Auto) Lymph # (Auto) [place] # (Auto) Eos # (Auto) Baso # (Auto) PT INR APTT PTT Ratio Sodium Potassium Chloride Carbon Dioxide Anion Gap BUN Creatinine Est Cr Clr Drug Dosing Est GFR ( Amer) Est GFR (Non-Af Amer) BUN/Creatinine Ratio Glucose Calcium Total Bilirubin AST ALT Alkaline Phosphatase Troponin I 0.610 H* Total Protein Albumin Globulin Albumin/Globulin Ratio Lipase Diagnostic Findings ECG personally reviewed: ECG 09/16/2018: Atrial flutter at 59 bpm. Anteroseptal infarct. Echo 09/16/2018: Moderately dilated LV with mildly reduced systolic function. EF 45%. Akinesis of the basal inferolateral wall. Base to mid anterolateral wall appears severely hypokinetic to akinetic. Hypokinesis of the base to mid inferior and mid inferolateral wall segments.Mild hypokinesis involving the anteroseptum. No LVH. Severe left atrial dilation. Mild right atrial dilation. Severe aortic stenosis with mild regurgitation. Moderate MR. RVSP 61. moderate pericardial effusion without echocardiographic evidence of tamponade physiology. Chest x-ray 09/16/2018: Mild interstitial edema per Radiology. Interval dev elopment of mild left basilar opacity per Radiology, atelectasis versus pneumonia. Medications Administered Current Inpatient Medications Acetaminophen (Tylenol) 650 mg PO Q4H PRN PRN Reason: Pain or Fever Stop: 10/16/18 13:07 Al Hydrox/Mg Hydrox/Simethicone (Maalox) 15 ml PO Q4H PRN PRN Reason: Dyspepsia Stop: 10/16/18 13:07 Albuterol (Duoneb) 3 ml NEB QIDR ARMINDA Stop: 10/16/18 13:29 Last Admin: 09/16/18 15:22 Dose: Not Given Documented by: Albuterol (Ventolin 0.083% 2.5mg/3ml) 2.5 mg NEB Q4H PRN PRN Reason: Shortness Of Breath Stop: 10/16/18 13:07 Aspirin (Ecotrin Ectab) 81 mg PO QAM ARMINDA Stop: 10/17/18 08:59 Atorvastatin Calcium (Lipitor) 40 mg PO HS ARMINDA Stop: 10/16/18 20:59 Ferrous Sulfate (Feosol) 325 mg PO Q2D@0800 ARMINDA Stop: 10/17/18 07:59 Fish Oil ([place]-3 (Purified Fish Oil)) 1 gm PO QAM ARMINDA Stop: 10/17/18 08:59 Fluticasone Propionate (Flonase) [facility] Stop: 10/17/18 08:59 Furosemide (Lasix) 40 [facility] Stop: 10/17/18 08:59 Guaifenesin (Mucinex) 600 mg PO Q12H PRN PRN Reason: Congestion Stop: 10/16/18 13:07 Heparin Sodium/Dextrose () 1 ea IV Q10M [facility]; Protocol Stop: 10/16/18 15:49 Levofloxacin/Dextrose (Levaquin/D5w) 750 mg in 150 mls @ 100 mls/hr IV Q24H [facility] Stop: 09/23/18 13:59 Last Infusion: 09/16/18 15:52 Dose: Infused Documented by: Lisinopril (Zestril) 20 [facility] Stop: 10/17/18 08:59 Magnesium Hydroxide (Milk Of Magnesia) 30 ml PO Q12H PRN PRN Reason: Constipation Stop: 10/16/18 13:07 Magnesium Oxide (Mag-Ox) 600 mg [facility] Stop: 10/17/18 08:59 Metoprolol Succinate (Toprol Xl) 25 mg PO QAM [facility] Stop: 10/17/18 08:59 Prednisone (Prednisone) 20 mg PO TIDM [facility] Stop: 10/16/18 16:59 Rivaroxaban (Xarelto) 20 mg PO QDD [facility] Stop: 10/16/18 16:29
[2018-09-16] MEDS ORDERED: Heparin IV Standard *NO* Bolus ONE (16:11)
[2018-09-16] MEDS ORDERED: Heparin IV BOLUS 0 units in Syringe 0 mL IV ONE (16:15)
[2018-09-16] MEDS ORDERED: RIVAROXABAN 20 MG TAB PO SCH (16:30)
[2018-09-16] MEDS: predniSONE 20 MG TAB PO SCH (16:35)
[2018-09-16] MEDS: Heparin Adult STANDARD Wt-Based Dextrose 5% 25,000 units/500 mL IV SCH (16:35)
[2018-09-16] MEDS: ATORVASTATIN 40 MG TAB PO SCH (20:55)
[2018-09-16] MEDS ORDERED: HEPARIN 100 UNIT/ML 5ML FLUSH FLUSH PRN (23:11)
[2018-09-16 23:37] LABS: Partial Thromboplastin Ratio 2.2
[2018-09-16 23:47] LABS: Partial Thromboplastin Time 59.9 Seconds (21.0-31.0)
[2018-09-17 06:23] LABS: Hematocrit (blood only) 35.2 % (42-52); Hemoglobin 11.8 g/dL (14.0-18.0); Immature Granulocytes # (auto) 0.03 K/uL (0.00-0.02); Immature Granulocytes % (auto) 0.3 %; Lymphocytes # (auto) 1.06 K/uL (1.2-3.4); Lymphocytes % (auto) 8.9 %; Mean Corpuscular Hgb Conc 33.5 g/dL (32-36); Mean Corpuscular Volume 87.8 fL (80-100); Mean Platelet Volume 10.2 fL (7.4-10.4); Monocytes # (auto) 0.47 K/uL (0.11-0.59); Monocytes % (auto) 3.9 %; Neutrophils # (auto) 10.36 K/uL (1.4-6.5); Neutrophils % (auto) 86.9 %; Platelet Count 233 K/uL (130-400); RDW Coefficient of Variation 13.5 % (11.5-14.5); RDW Standard Deviation 43.5 fL (36.4-46.3); Red Blood Count 4.01 M/uL (4.7-6.1); White Blood Count 11.92 K/uL (4.8-10.8)
[2018-09-17 06:35] LABS: Partial Thromboplastin Ratio 3.1
[2018-09-17 06:41] LABS: Partial Thromboplastin Time 85.1 Seconds (21.0-31.0)
[2018-09-17 06:46] LABS: BUN Creatinine Ratio 26.1 (10-20); Calcium 9.5 mg/dl (8.5-10.1); Creatinine Clr Calc Pharmacy 57.8 ml/min; Est GFR (African American) 58.2; Est GFR (Non-African American) 50.2; Magnesium 1.9 mg/dl (1.8-2.4); Potassium 4.6 mmol/L (3.5-5.1)
[2018-09-17] MEDS: ALBUT/IPRATROP 3MG/0.5MG NEB 3 ML VIAL NEB SCH ×4 (06:50→19:14)
--- NOTE | 2018-09-17 07:51 | Hospitalist Progress Note ---
Date of Service September 17, 2018 Assessment & Plan (1) Pneumonia: 73 y/o M Hx acute on chronic systolic and diastolic Heart failure in the setting of nstemi and pneumonia, CAD, Afib/flutter, HTN, HLD, SCCA lung CA, chronic pericardial effusion. Presents with progressive dyspnea and was mildly hypoxic on arrival to the ER. Reports a productive cough without fevers x 3 weeks which he states followed some sinus congestion. The pt has had dyspnea for several months. This initially led to his R heart cath. CXR obtained in the ER appears to show a developing pneumonia in the RLL. Additional labs are notable for mild ARMANDO and an elevated troponin which has slightly increased 1) Dyspnea - may be multifactorial. We will treat for pneumonia with antibiotics and nebs. He takes steroids daily and we have increased his dose. Sputum cultures are pending. significant seen on echo that can account for dyspnea 2) CAD - elevated trop - elevation with slight upward trend - echo with continue metoprolol and holding Xarelto for possible LHC. 3) AF/flutter - rate is controlled at 59 - cont metoprolol, 4 pericardial effusion. echo suggests slight decrease 5)chronic systolic and diastolic heart failure cont Lasix AM 6) Mild ARMANDO - resolved caution with contrast for lhc Full code Subjective Patient was comfortable albeit slightly short of breath having a DuoNeb and coughing producing a little bit of green-yellow sputum. Given his discomfort and known severe aortic stenosis and elevation of his troponin he is slated to have a diagnostic cardiac catheterization the afternoon of he has no current chest pain Review of Systems Review of Systems: ROS: well nourished well developed. No double vision blurry vision No problems with speech or swallowing No palpitations, previous but none current chest pain or pressure Chronic shortness of breath, cough and production of sputum No abdominal pain nausea vomiting diarrhea changes in appetite or weight No burning urine urine frequency or changes in color No focal joint pain or muscle pain No skin rashes or oral lesions No unusual bruising or bleeding No focused back pain or numbness or loss of strength No changes in memory or confusion Physical Exam Physical Exam: The patient appeared well nourished and in mild distress Vital signs as documented. Head exam is unremarkable. normocephalic, atraumatic Neck is without jugular venous distension, thyromegaly, or lymphademopathy Lungs are diminished bilaterally with expiratory wheezes no focal air loss Cardiac exam reveals Rhythm is regular. Systolic ejection murmur at the right upper sternal border is heard Abdominal exam reveals normal bowel sounds, no masses, no organomegaly Extremities are trace edematous and both pedal pulses are present Neurologic exam is A&Ox3, no focal deficits, strength is equal bilateral Psychologically seems neither anxious or depressed Skin is warm Dry without bruises or lesions Results & Data Vital Signs (Past 12 Hours) Vital Signs Temp Pulse Resp BP Pulse Ox 09/17/18 07:00 36.9 C 60 16 133/68 96 09/17/18 06:52 61 14 96 09/17/18 04:24 37.0 C 60 16 107/58 L 96 09/16/18 23:40 36.9 C 59 L 114/65 97 (1) Pneumonia Laterality: unspecified laterality Lung location: unspecified part of lung Pneumonia type: due to unspecified organism Qualified Code(s): J18.9 - Pneumonia, unspecified organism
[2018-09-17] MEDS: predniSONE 20 MG TAB PO SCH ×3 (07:53→17:57)
[2018-09-17] MEDS: guaiFENesin 600 MG TABCR PO PRN ×2 (07:56→21:16)
[2018-09-17] MEDS ORDERED: FERROUS SULFATE 325 MG TAB PO SCH (08:00)
--- NOTE | 2018-09-17 08:51 | Cardiology Progress Note ---
Date of Service September 17, 2018 Assessment & Plan (1) Non-ST elevation (NSTEMI) myocardial infarction: Troponin up to 0.764. Would trend troponins until peak. He has had symptoms concerning for ischemic heart disease and also from his aortic valve stenosis. Cardiac catheterization recommended and he is agreeable to undergo this procedure today. Risks and benefits have been discussed with him in detail. He was made aware that CT surgery is not available at this surgery. (2) Aortic stenosis: Recommend cardiac catheterization in anticipation of aortic valve replacement, which may be playing a large role in his symptoms of progressively worsening dyspnea with exertion and also chest discomfort. (3) Mitral regurgitation: Would consider transesophageal echo but he is producing sputum and has been having issues coughing. He is concerned about coughing from the sputum build up during the procedure. Would hold off on this for now and see if his sputum improves. Cardiac catheterization will first be performed. Transesophageal ECHO can then be performed in the future. (4) Pericardial effusion: Clinically he does not appear to be in tamponade physiology and in fact, pericardial effusion appears smaller than it has in the past. Monitor over time. (5) CAD (coronary artery disease), [place] coronary artery: He is status post proximal RCA PCI in 2007 and mid LAD PCI in 2005. Symptoms concerning for angina as above. Continue aspirin 81 mg daily. Continue high-intensity statin therapy. Continue beta-milly. He did have another episode of chest pressure yesterday. Currently chest pain-free. Cardiac catheterization. (6) Exertional angina: Plan as above with cardiac catheterization when able. Currently asymptomatic. (7) Atrial flutter: Rate controlled atrial flutter. Continue anticoagulation but will hold Xarelto in anticipation of cardiac catheterization at some point during this hospitalization. Continue heparin drip for now. Later today. (8) Pulmonary hypertension: PA pressure was described as normal when he underwent right heart catheterization in May. It is now estimated to be severe on echo. Right heart catheterization later today. (9) SOB (shortness of breath): Likely multifactorial. He has severe aortic stenosis, has a history of coronary artery disease, and there is also concern for pneumonia by primary hospitalist service. Filling pressures will be measured today during right heart catheterization. Disposition: Cardiac catheterization today. I will be away from the hospital f or the next 4 days. Please call on-call manufacturing plant controller for any questions or concerns. Plan of care communicated with Dr. Frias. Subjective He had another episode of chest pressure yesterday while in his hospital room, but none since. His breathing has improved. He denies syncope, near-syncope, palpitations or worsening edema. He denies bleeding. He continues to have a lot of phlegm buildup and has intermittent coughing. Review of systems: As above. Physical Exam Physical Exam: Gen.: No acute distress. Alert and oriented. HEENT: Anicteric sclera. Neck: No appreciable JVD. Cardiac: Regular. Normal S1 and soft S2. 3/6 late peaking systolic ejection murmur heard best at right upper sternal border. No rubs or gallops. Pulmonary: Mildly decreased breath sounds throughout the left lung, but otherwise clear. Abdomen: Soft, nontender, nondistended, with normoactive bowel sounds. No bruits noted. Extremities: No appreciable edema. No cyanosis. Psychiatric: Affect appears appropriate. Results & Data Vital Signs (Past 12 Hours) Vital Signs Temp Pulse Resp BP Pulse Ox 09/17/18 07:00 36.9 C 60 16 133/68 96 09/17/18 06:52 61 14 96 09/17/18 04:24 37.0 C 60 16 107/58 L 96 09/16/18 23:40 36.9 C 59 L 114/65 97 Intake & Output 09/15/18 09/16/18 09/17/18 09/18/18 06:59 06:59 06:59 06:59 Intake Total 1283 / 1283 0 / 0 Output Total 1400 / 1400 Balance -117 / -117 0 / 0 Weight 94.7 kg Laboratory Results Laboratory Results - last 24 hr 09/16/18 09/16/18 09/16/18 08:41 08:41 08:41 WBC 11.86 H RBC 4.26 L Hgb 12.8 L Hct 37.1 L MCV 87.1 MCH 30.0 MCHC 34.5 RDW Std Deviation 42.3 RDW Coeff of Tiff 13.3 Plt Count 261 MPV 10.3 Immature Gran % (Auto) 0.2 Neut % (Auto) 92.6 Lymph % (Auto) 4.5 [place] % (Auto) 2.7 Eos % (Auto) 0.0 Baso % (Auto) 0.0 Immature Gran # (Auto) 0.02 Neut # (Auto) 10.99 H Lymph # (Auto) 0.53 L [place] # (Auto) 0.32 Eos # (Auto) 0.00 Baso # (Auto) 0.00 PT 14.6 H INR 1.5 H APTT 34.0 H PTT Ratio 1.3 Sodium 135 L Potassium 4.5 Chloride 103 Carbon Dioxide 20 L Anion Gap 12.0 H BUN 36 H Creatinine 1.59 H Est Cr Clr Drug Dosing 51.3 Est GFR ( Amer) 49.9 Est GFR (Non-Af Amer) 43.0 BUN/Creatinine Ratio 22.6 H Glucose 215 H Calcium 9.6 Magnesium Total Bilirubin 0.7 AST 36 ALT 47 Alkaline Phosphatase 74 Troponin I 0.076 H* Total Protein 7.4 Albumin 3.7 Globulin 3.7 Albumin/Globulin Ratio 1.0 Lipase 181 09/16/18 09/16/18 09/16/18 13:55 17:42 22:54 WBC RBC Hgb Hct MCV MCH MCHC RDW Std Deviation RDW Coeff of Tiff Plt Count MPV Immature Gran % (Auto) Neut % (Auto) Lymph % (Auto) [place] % (Auto) Eos % (Auto) Baso % (Auto) Immature Gran # (Auto) Neut # (Auto) Lymph # (Auto) [place] # (Auto) Eos # (Auto) Baso # (Auto) PT INR APTT 59.9 H* PTT Ratio 2.2 Sodium Potassium Chloride Carbon Dioxide Anion Gap BUN Creatinine Est Cr Clr Drug Dosing Est GFR ( Amer) Est GFR (Non-Af Amer) BUN/Creatinine Ratio Glucose Calcium Magnesium Total Bilirubin AST ALT Alkaline Phosphatase Troponin I 0.610 H* 0.764 H* Total Protein Albumin Globulin Albumin/Globulin Ratio Lipase 09/17/18 09/17/18 09/17/18 06:05 06:05 06:05 WBC 11.92 H RBC 4.01 L Hgb 11.8 L Hct 35.2 L MCV 87.8 MCH 29.4 MCHC 33.5 RDW Std Deviation 43.5 RDW Coeff of Tiff 13.5 Plt Count 233 MPV 10.2 Immature Gran % (Auto) 0.3 Neut % (Auto) 86.9 Lymph % (Auto) 8.9 [place] % (Auto) 3.9 Eos % (Auto) 0.0 Baso % (Auto) 0.0 Immature Gran # (Auto) 0.03 H Neut # (Auto) 10.36 H Lymph # (Auto) 1.06 L [place] # (Auto) 0.47 Eos # (Auto) 0.00 Baso # (Auto) 0.00 PT INR APTT 85.1 H* PTT Ratio 3.1 Sodium 139 Potassium 4.6 Chloride 106 Carbon Dioxide 23 Anion Gap 10.0 BUN 37 H Creatinine 1.40 Est Cr Clr Drug Dosing 57.8 Est GFR ( Amer) 58.2 Est GFR (Non-Af Amer) 50.2 BUN/Creatinine Ratio 26.1 H Glucose 159 H Calcium 9.5 Magnesium 1.9 Total Bilirubin AST ALT Alkaline Phosphatase Troponin I Total Protein Albumin Globulin Albumin/Globulin Ratio Lipase Medications Administered Current Inpatient Medications Acetaminophen (Tylenol) 650 mg PO Q4H PRN PRN Reason: Pain or Fever Stop: 10/16/18 13:07 Al Hydrox/Mg Hydrox/Simethicone (Maalox) 15 ml PO Q4H PRN PRN Reason: Dyspepsia Stop: 10/16/18 13:07 Albuterol (Duoneb) 3 ml NEB QIDR [facility] Stop: 10/16/18 13:29 Last Admin: 09/17/18 06:50 Dose: 3 ml Documented by: Albuterol (Ventolin 0.083% 2.5mg/3ml) 2.5 mg NEB Q4H PRN PRN Reason: Shortness Of Breath Stop: 10/16/18 13:07 Aspirin ([facility]rin [facility]ctab) [facility] Stop: 10/17/18 08:59 Last Admin: 09/17/18 07:56 Dose: 81 mg Documented by: Atorvastatin Calcium (Lipitor) 40 mg PO HS [facility] Stop: 10/16/18 20:59 Last Admin: 09/16/18 20:55 Dose: 40 mg Documented by: Ferrous Sulfate (Feosol) 325 mg PO Q2D@0800 [facility] Stop: 10/17/18 07:59 Last Admin: 09/17/18 07:58 Dose: Not Given Documented by: Fish Oil ([place]-3 (Purified Fish Oil)) [facility]m [facility] Stop: 10/17/18 08:59 Last Admin: 09/17/18 07:59 Dose: Not Given Documented by: Fluticasone Propionate (Flonase) 2 sprays NA [facility] Stop: 10/17/18 08:59 Last Admin: 09/17/18 07:52 Dose: 2 sprays Documented by: Furosemide (Lasix) 40 mg PO [facility] Stop: 10/17/18 08:59 Guaifenesin (Mucinex) 600 mg PO Q12H PRN PRN Reason: Congestion Stop: 10/16/18 13:07 Last Admin: 09/17/18 07:56 Dose: 600 mg Documented by: Heparin Sodium (Porcine) (Heparin Sod 100 Unit/Ml Flush) 5 ml FLUSH PRN PRN PRN Reason: Flush Stop: 10/16/18 23:14 Levofloxacin/Dextrose (Levaquin/D5w) 750 mg in 150 mls @ 100 mls/hr IV Q24H [facility] Stop: 09/23/18 13:59 Last Infusion: 09/16/18 15:52 Dose: Infused Documented by: Heparin Sodium/Dextrose (Heparin Sodium/Dextrose) 25,000 units in 500 mls @ 27 mls/hr IV .[id number] [facility]; Protocol Stop: 10/16/18 16:14 Last Titration: 09/17/18 07:15 Dose: 1,350 units/hr, 27 mls/hr Documented by: Lisinopril (Zestril) 20 mg PO [facility] Stop: 10/17/18 08:59 Last Admin: 09/17/18 08:45 Dose: 20 mg Documented by: Magnesium Hydroxide (Milk Of Magnesia) 30 ml PO Q12H PRN PRN Reason: Constipation Stop: 10/16/18 13:07 Magnesium Oxide (Mag-Ox) 600 mg PO [facility] Stop: 10/17/18 08:59 Last Admin: 09/17/18 07:51 Dose: 600 mg Documented by: Metoprolol Succinate (Toprol Xl) 25 mg PO [facility] Stop: 10/17/18 08:59 Last Admin: 09/17/18 07:52 Dose: 25 mg Documented by: Prednisone (Prednisone) 20 mg PO TIDM [facility] Stop: 10/16/18 16:59 Last Admin: 09/17/18 07:53 Dose: 20 mg Documented by: Rivaroxaban (Xarelto) 20 mg PO QDD [facility] Stop: 10/16/18 16:29
[2018-09-17] MEDS ORDERED: FLUTICASONE PROPIONATE NA SPR 16 GM BTL SCH (09:00)
[2018-09-17] MEDS ORDERED: OMEGA-3 (PURIFIED FISH OIL) 1 GM CAP PO SCH (09:00)
[2018-09-17] MEDS ORDERED: LISINOPRIL 20 MG TAB PO SCH (09:00)
[2018-09-17] MEDS ORDERED: METOPROLOL SUCC 25MG EXT REL TAB PO SCH (09:00)
[2018-09-17] MEDS ORDERED: FUROSEMIDE 20 MG TAB PO SCH (09:00)
[2018-09-17] MEDS ORDERED: MAGNESIUM OXIDE 400 MG TAB PO SCH (09:00)
[2018-09-17] MEDS ORDERED: ASPIRIN 81 MG ECTAB PO SCH (09:00)
--- NOTE | 2018-09-17 09:32 | Pre Anesthesia Assessment ---
Date of Service September 17, 2018 Pre Sedation Assessment Vital Signs Temp Pulse Pulse Resp BP BP BP 09/17/18 07:00 36.9 C 60 16 133/68 09/17/18 06:52 61 14 09/17/18 04:24 37.0 C 60 16 107/58 L 09/16/18 23:40 36.9 C 59 L 114/65 09/16/18 19:00 36.6 C 62 18 106/53 L 09/16/18 18:54 67 16 09/16/18 16:00 60 09/16/18 15:18 36.6 C 58 L 18 111/63 09/16/18 13:41 88 16 09/16/18 13:08 36.7 C 60 64 24 120/57 L 09/16/18 12:30 60 22 129/66 09/16/18 12:00 58 L 19 120/68 09/16/18 11:30 60 24 132/55 L 09/16/18 11:01 60 23 09/16/18 11:00 61 18 115/55 L 09/16/18 10:31 58 L 25 H 96/50 L 09/16/18 10:30 67 23 09/16/18 10:20 58 L 24 116/76 09/16/18 10:00 59 L 22 116/76 09/16/18 09:40 09/16/18 09:37 Pulse Ox Pulse Ox 09/17/18 07:00 96 09/17/18 06:52 96 09/17/18 04:24 96 09/16/18 23:40 97 09/16/18 19:00 97 09/16/18 18:54 97 09/16/18 16:00 96 09/16/18 15:18 96 09/16/18 13:41 97 09/16/18 13:08 95 88 L 09/16/18 12:30 95 09/16/18 12:00 95 09/16/18 11:30 94 09/16/18 11:01 95 09/16/18 11:00 94 09/16/18 10:31 92 09/16/18 10:30 92 09/16/18 10:20 92 09/16/18 10:00 95 09/16/18 09:40 96 09/16/18 09:37 88 L Cardiovascular + regular rate + murmur Respiratory normal respiratory effort, lungs clear to auscultation Pre-Sedation Airway Assessment Smoking Status: Former smoker Hx Sleep Apnea: No Hx Difficult Intubation: No Mallampati Class: II ASA: ASA3 NPO Status Date of Last Intake of Fluids: 09/16/18 Time of Last Intake of Fluids: 22:00 Date of Last Intake of Solid Food: 09/16/18 Time of Last Intake of Solid Foods: 22:00 Procedure Planning Contraindications for Sedation: none Current Medications Reviewed: Yes Notes The planned sedation has been discussed with the patient. Informed Consent was obtained. I have identified the patient, determined the appropriateness of sedation and have assessed the patient immediately prior to the procedure. All medicine(s) and interventions are by my order.
[2018-09-17] MEDS: Heparin Adult STANDARD Wt-Based Dextrose 5% 25,000 units/500 mL IV SCH (10:41)
[2018-09-17] MEDS ORDERED: HEPARIN (PORCINE) 1000 UNIT/ML 10 ML (CATH LAB USE ONLY) ONE (13:35)
[2018-09-17] MEDS ORDERED: NiCARDipine HCL INJ 2.5 MG/ML 10 ML AMP ONE (13:35)
[2018-09-17] MEDS ORDERED: MIDAZOLAM HCL 1 MG/ML 2ML VIAL ONE (13:35)
[2018-09-17] MEDS ORDERED: fentaNYL citrate 100 MCG/2 ML VIAL ONE (13:35)
[2018-09-17 13:40] LABS: Partial Thromboplastin Ratio 2.2
[2018-09-17 13:55] LABS: Partial Thromboplastin Time 59.3 Seconds (21.0-31.0)
[2018-09-17 14:52] LABS: iSTAT Arterial Blood Gas HCO3 18 meg/L (19-24); iSTAT Arterial Blood Gas pCO2 28 mmHg (35-46); iSTAT Arterial Blood Gas pH 7.42 (7.35-7.45); iSTAT Carbon Dioxide 19 mEq/l (24-31)
[2018-09-17 14:52] LABS: iSTAT Arterial Blood Gas HCO3 20 meg/L (19-24); iSTAT Arterial Blood Gas pCO2 33 mmHg (35-46); iSTAT Arterial Blood Gas pH 7.39 (7.35-7.45); iSTAT Carbon Dioxide 21 mEq/l (24-31)
[2018-09-17 14:53] LABS: iSTAT Arterial Blood Gas HCO3 20 meg/L (19-24); iSTAT Arterial Blood Gas pCO2 32 mmHg (35-46); iSTAT Carbon Dioxide 21 mEq/l (24-31)
[2018-09-17] MEDS ORDERED: ADENOSINE IV SOLN 3 MG/ML 20 ML VIAL IV ONE (15:19)
--- NOTE | 2018-09-17 15:50 | Cardiac Catheterization ---
Cardiac Cath Procedure Full Procedure Date September 17, 2018 Pre-Procedure Diagnosis Pre-Procedure Diagnosis: Non STEMI and Valvular Disease AUC Score AUC Score: 7 Post-Procedure Diagnosis Post-Procedure Diagnosis: Severe CAD and Elevated Intracardiac Pressures Procedure(s) Performed Procedure(s) Performed: Coronary Angiography and Right Heart Cath Inspector [employer]sembl[employer] David Calvillo MD [employer] Assembler(s) Dasha Cooney Estimated Blood Loss Estimated Blood Loss: < 30 ml Medication(s) Medication(s): Fentanyl, Heparin, Lidocaine 1%, Nicardipine and Versed Summary of Findings Coronary angiography: 1. Left main coronary artery: The LMCA has 30-40% distal tapering. 2. Left anterior descending: LAD is a large caliber vessel extends to the apex. Ostial LAD 50-70% focal stenosis ("napkin ring" appearance). Mid LAD stent with proximal 30% in stent restenosis and distal 30% InStent restenosis. Medium caliber D1 originates from the stented mid LAD territory with ostial 60- 70% stenosis. Medium caliber D2 without significant CAD. 3. Circumflex: The circumflex is a large caliber vessel. Mid circumflex 100%. Small OM1. 4. Right coronary artery: The RCA is large and dominant. Proximal to mid RCA stent with proximal in stent restenoses 80-90%. Distal stent 30% in stent restenoses. Distal RCA 20%. Large PDA with mid 50% stenosis. Large PL without significant CAD. Right to left collaterals to Circumflex and OM. Right heart catheterization: 1. Elevated pulmonary capillary wedge pressure. V-wave 47 with a mean of 22mmHg. 2. Severe pulmonary hypertension. PA pressure 72/18 with a mean of 36mmHg. 3. RV pressure 60/0 with RV EDP of 9mmHg. 4. Right atrial pressure mildly elevated. A-wave 14; V-wave 12; mean 9mmHg. 5. Cardiac output via thermodilution was 5.3 L/min, with a cardiac index of 2.5 L/min/m2. 6. PVR 2.6 wood units. Procedural notes: 1. There was no attempt to cross the aortic valve as he has previously documented severe aortic stenosis on echocardiogram. Sedation start time: 2:17 p.m. Sedation end time: 3:01 p.m. Impression: 1. Severe CAD involving proximal RCA stent, and occluded mid circumflex. 2. Moderate to severe ostial D1, originating from stented portion of mid LAD. 3. Otherwise, nonobstructive CAD. 4. Severe pulmonary hypertension, likely related to left heart failure. 5. Dior V-wave with moderately elevated pulmonary capillary wedge pressure. 6. Normal cardiac output. 7. Previously documented severe aortic stenosis on echocardiogram. Plan: 1. Images reviewed with Interventional Cardiology, Dr. Ruiz, who plans to further investigate ostial LAD lesion with FFR (found to be 0.82). 2. Refer to CT surgery Center for evaluation of aortic valve replacement, with possible revascularization. 3. Recommend further imaging of mitral valve with moderate mitral regurgitation on transthoracic echo. Hemodynamics Rest Ao:: 122/45 Final Ao: 129/54 LV: n/a Recommendations Recommendations: Valve Replacement and Management Recommendatons (as above) Specimens Specimens: None Radiation Exposure (mGy) 1697 mGy. Fluoro time 6.9 min. Contrast (mls) 70 ml Procedural Complication(s) None Disposition PCU ACC Data: Certified Nursing Attendant Cardiac Status Clinical evaluation leading to the procedure CAD Presenation: Non STEMI Anginal Classification: CCS IV Heart Failure: NYHA Class: CCS III Cardiogenic Shock within 24 Hours: No Cardiac Arrest within 24 Hours: No Imaging Studies Past 6 Months: Yes Stress Studies Past 6 Months: Yes Standard Exercise Test: No Stress Echocardiogram: No Stress Testing w/SPECT MPI: Yes - Negative Cardiac CTA: No Coronary Anatomy Dominant: Right Left Main (% Stenosis): Distal (30-40%) LAD (% Stenosis): Ostial (50-70% focal stenosis) and Mid (in-stent restenosis of proximal and distal portion of mid LAD stent.) D1 (% Stenosis): Ostial (60-70%) D2 (% Stenosis): Normal Circumflex (% Stenosis): Mid (100%) and Distal (distal Cx and OM fill via right to left collaterals.) OM1 (% Stenosis): Normal RCA (% Stenosis): Proximal (proximal RCA stent with 80-90% in-stent restonsis in proximal portion of stent and 30% in-stent restenosis of distal portion of stent.) and Distal (20%) R PDA (% Stenosis): Mid (50%) R PL1 (% Stenosis): Normal Left Ventricular Angiography EF (%): n/a Diagnostic Physicians Name: David Calvillo MD Status: Elective Closure Device Percutaneous Entry Location: Radial Closure Device: Radial Band Recommendations: Valve Replacement and Management Recommendatons (as above)
--- NOTE | 2018-09-17 15:58 | Post Anesthesia Assessment ---
Date of Service September 17, 2018 Post Sedation Assessment Vital Signs Temp Pulse Pulse Pulse Resp BP BP 09/17/18 11:29 36.7 C 61 18 92/51 L 09/17/18 11:12 62 16 09/17/18 07:00 36.9 C 60 16 133/68 09/17/18 06:52 61 14 09/17/18 04:24 37.0 C 60 16 107/58 L 09/16/18 23:40 36.9 C 59 L 114/65 09/16/18 19:00 36.6 C 62 18 106/53 L 09/16/18 18:54 67 16 09/16/18 16:00 60 Pulse Ox Pulse Ox 09/17/18 11:29 93 09/17/18 11:12 94 09/17/18 07:00 96 09/17/18 06:52 96 09/17/18 04:24 96 09/16/18 23:40 97 09/16/18 19:00 97 09/16/18 18:54 97 09/16/18 16:00 96 Recovery Score Activity: Moves 4 extremities Respiration: Deep Breath/Cough Circulation: +/-20% PreAnes Value Consciousness: Fully Awake Post Sedation Plan On clinical assessment, the patient appears to have tolerated the sedation without complications. Patient is recovering as anticipated. Patient will continue to be monitored by nursing and may be discharged when sedation discharge criteria are met per below protocol. Upon Completions of procedure and additional 15 minutes continue every 5 minute vital signs and the P.A.R. score; then discharge to a Phase I or Fast Track to Phase II per the following guidelines: * Discharge Patient to appropriate Phase II area if PAR is 8 or greater or return to pre- procedure baseline. The post - procedure orders will be as directed. * If PAR score is less than 8 or not return to pre-procedure baseline then patient will follow Phase I monitoring till PAR is reached for Phase II. The Phase I may be done in procedure room or may call to secure a Phase I area. * If naloxone or flumazenil are used for reversal, hold in Phase I for continued monitoring from when last reversal dose was given for a minimum of 60 minutes or longer pending the nurse and/or physician discretion of patient condition before discharge to Phase II. Please call the Sedation Physician to re-evaluate and complete post-note for discharge to Phase II area. Do NOT discharge from procedure sedation or Phase 1 until post- sedation evaluation note is complete by procedure /sedation MD Sedation Discharge Instructions to be given to the patient at discharge to home.
[2018-09-17] MEDS: LEVOFLOXACIN/D5W 750 MG/150 ML BAG IV SCH (16:47)
[2018-09-17] MEDS ORDERED: FUROSEMIDE 40 MG in SYRINGE 0 ML IV SCH (17:00)
--- NOTE | 2018-09-17 17:20 | Discharge Summary ---
Date of Service September 17, 2018 Admission HPI Per Admitting Provider 73 y/o M Hx systolic CHF, CAD, Afib/flutter, HTN, HLD, lung CA, chronic pericardial effusion. Presents with progressive dyspnea and was mildly hypoxic on arrival to the ER. Reports a productive cough without fevers x 3 weeks which he states followed some sinus congestion. The pt has had dyspnea for several months. This initially led to his R heart cath. It is unclear if his dyspnea is affected by the effusion. A CXR obtained in the ER appears to show a developing effusion in the RLL. Additional labs are notable for mild ARMANDO and an elevated troponin which looks to be chronic. PMH: 1) Systolic CHF - last EF on record 40% 2) Chronic pericardial effusion - R cath 05/25 did not demonstrate hemodynamic significance 3) Afib/flutter - chronic - Xarelto 4) CKD II-III 5) Lung CA - remission since 2013 - treated with chemo and radiation. 6) CAD - [place] - stents placed in 2005 and 2007 7) HTN 8) HLD Surgical: Hernia repair Social: Quit smoking 2004 Family: Father due to a CA Mother due to CA and DM Principal Diagnosis multivessel CAD and severe Aortic stenosis Discharge Exam Constitutional well developed and average body habitus Eyes no conjunctival abnormality and no scleral abnormality Respiratory pt has some copd with prolongued expiratory phase, but no focal air loss or wheeze Cardiovascular Rate/Rhythm: regular rhythm Heart Sounds: + murmur Gastrointestinal (Abdomen) normal bowel sounds, soft, nontender, no hepatosplenomegaly Musculoskeletal no cyanosis or clubbing, extremities motor strength 5/5 Discharge Data Allergies Allergy/AdvReac Type Severity Reaction Status Date / Time No Known Allergies Allergy Verified 09/16/18 10:08 Consultations 09/16/18 10:18 ED Decision to Admit Stat 09/16/18 15:21 Consult Cardiology Routine Procedures Performed Operation Date: 09/17/18 06:40 Actual Procedures p Cath, Right Heart with Cors - David Calvillo MD s Cineradiography w/Routine Exam - David Calvillo MD s Fraction Flow Cascade SGL Ves - Anup Ruiz MD Ordered Studies 09/17/18 06:42 CL Cath Imgs for PACS use only Routine Hospital Course (1) Pneumonia: 73 y/o M Hx acute on chronic systolic and diastolic Heart failure in the setting of nstemi and pneumonia, CAD, Afib/flutter, HTN, HLD, SCCA lung CA, chronic pericardial effusion. Presents with progressive dyspnea and was mildly hypoxic on arrival to the ER. Reports a productive cough without fevers x 3 weeks which he states followed some sinus congestion. The pt has had dyspnea for several months. This initially led to his R heart cath. CXR obtained in the ER appears to show a developing pneumonia in the RLL. Additional labs are notable for mild ARMANDO and an elevated troponin which has slightly increased 1) Dyspnea - may be multifactorial. We will treat for pneumonia with antibiotics and nebs. He takes steroids daily and we have increased his dose. Sputum cultures are pending. significant seen on echo that can account for dyspnea 2) CAD - elevated trop - elevation with slight upward trend - echo with continue metoprolol and holding Xarelto results of left heart cath: Impression: 1. Severe CAD involving proximal RCA stent, and occluded mid circumflex. 2. Moderate to severe ostial D1, originating from stented portion of mid LAD. 3. Otherwise, nonobstructive CAD. 4. Severe pulmonary hypertension, likely related to left heart failure. 5. Dior V-wave with moderately elevated pulmonary capillary wedge pressure. 6. Normal cardiac output. 7. Previously documented severe aortic stenosis on echocardiogram. 3) AF/flutter - rate is controlled at 59 - cont metoprolol, 4 pericardial effusion. echo suggests slight decrease 5)chronic systolic and diastolic heart failure cont Lasix AM 6) Mild ARMANDO - resolved caution with contrast for [facility] Full code Total Time Total Time Spent Total Time Spent (In Minutes): greater than 30 minutes were required to prepare discharge Discharge Plan Discharge Items Patient Disposition: Transfer Acute Care Hospital Reason For Visit: DYSPNEA- PNM- PERICARDIAL EFFUSION Discharge Diagnosis: CAd and severe Condition: Fair Discharge Goals: Decrease discomfort and Diagnostic testing Activity: As commented below Activity Comment: monitored bed confined Non-emergency contact: Primary Care Provider and Lab Engineer Call non-emergency contact if: you have any medication questions Follow-up/Referrals: Sonal Mcdonough CRNP [Primary Care Provider] - Diet: Heart Healthy Addtl Provider Instructions: Pt is on heparin gtt after heart cath ACTIVITY RECOMMENDATIONS: Excess manipulation of the wrist should be avoided for the next 24-48 hours. * No lifting over 2 pounds (approximately a 1/2 gallon of milk) with the utilized arm for 24 hours. * No strenuous activity such as bowling or tennis for 3 days. * Keep the site of the procedure covered with a bandage for 24 hours. *You may shower the day after the procedure. Do not take a tub bath or submerge the puncture site in water for the next 3 days. *Do not operate any motorized equipment for 3 days. SPECIAL CARE INSTRUCTIONS: The site may be slightly bruised and sore following your procedure. Should any of the following occur, contact the Dr. who performed your procedure. 1. Redness/inflammation, swelling, chills, or fever, or colored drainage at procedure site within 3-7 days after your procedure. 2. Coldness, discoloration, ongoing numbness, severe pain, or swelling. Expect mild tingling of hand and tenderness at the puncture site for up to three days. If this persists beyond three days, or other symptoms develop, notify the Dr. who performed your procedure. BLEEDING: If the procedure site on your wrist begins to bleed, do not panic 1. Place 1 or 2 fingers firmly just slightly above the insertion site to stop the bleeding. You may be able to feel your pulse as you hold pressure. 2. Lift your finger after 5 minutes to see if the bleeding has stopped. 3. Once the bleeding has stopped, gently wipe the wrist area clean with a ba ndage. * If the bleeding from your wrist does not stop after 10 minutes, or if there is a large amount of bleeding or spurting, call 911 (do not drive yourself to the hospital). SKIN IRRITATION: * You may experience some redness and/or swelling in the area where radiation was administered. If any skin irritation occurs, please contact your family physician. FOLLOW UP VISIT: Keep any scheduled doctor appointments. Prescriptions: Continued atorvastatin 40 mg tablet 40 mg PO HS RF: 0 lisinopril 20 mg tablet 20 mg PO QAM RF: 0 aspirin [Aspir-81] 81 mg Tablet,Delayed Release (Dr/Ec) 81 mg PO QAM RF: 0 furosemide 20 mg tablet 40 mg PO QAM RF: 0 metoprolol succinate 25 mg tablet extended release 24 hr 25 mg PO QAM RF: 0 ferrous sulfate 325 mg (65 mg iron) Tablet,Delayed Release (Dr/Ec) 325 mg PO Q2D RF: 0 omega 5-ved-iat-fish oil [Fish Oil] 1,000 mg (120 mg-180 mg) Capsule 1 cap PO QAM RF: 0 prednisone 20 mg tablet 20 mg PO BID RF: 0 albuterol sulfate [Ventolin HFA] 90 mcg/actuation HFA aerosol inhaler 2 puff inhalation Q4H PRN (Reason: Shortness Of Breath Or Wheezing) RF: 0 fluticasone propionate 50 mcg/actuation spray,suspension 2 spray intranasal QAM RF: 0 guaifenesin [Mucinex] 600 mg Tablet Extended Release 12hr 600 mg PO Q12H PRN (Reason: Congestion) RF: 0 magnesium oxide 200 mg magnesium Tablet 600 mg PO QAM RF: 0 Discontinued Xarelto 20 mg tablet 20 mg PO PM RF: 0 colchicine 0.6 mg capsule 0.6 mg PO UD RF: 0 Stand-Alone Forms: [facility] Discharge Orders: Discharge Order (Routine); Ordered 09/17/18 Ordered By: Jamey Frias Admission Data Admit Date/Time: 09/16/18 11:38 Attending Provider: Jamey Frias Admit Provider: Eber Marcano Primary Care Provider: Sonal Mcdonough Other Providers: Yamil Concepcion ; Eber Marcano ; David Calvillo Service: Telemetry
[2018-09-17 21:01] LABS: Partial Thromboplastin Ratio 4.1
[2018-09-17 21:07] LABS: Partial Thromboplastin Time 110.2 Seconds (21.0-31.0)
[2018-09-17] MEDS: ATORVASTATIN 40 MG TAB PO SCH (21:16)
== END 2018-09-17 22:36 | disposition short-term general hospital (02) | DRG 280 ==
LOC: ED 08:16 → 2S 11:38 → SUATTDRO 11:38 → 2S 12:41

== ENCOUNTER 2021-01-08 10:40 | Inpatient (IN) ==
[2021-01-08 12:03] LABS: Basophils # (auto) 0.01 K/uL (0-0.2); Basophils % (auto) 0.2 %; Eosinophils # (auto) 0.14 K/uL (0-0.5); Eosinophils % (auto) 2.1 %; Hematocrit (blood only) 35.6 % (42-52); Hemoglobin 12.4 g/dL (14.0-18.0); Immature Granulocytes # (auto) 0.04 K/uL (0.00-0.02); Immature Granulocytes % (auto) 0.6 %; Lymphocytes # (auto) 0.82 K/uL (1.2-3.4); Lymphocytes % (auto) 12.5 %; Mean Corpuscular Hemoglobin 31.6 pg (25-34); Mean Corpuscular Hgb Conc 34.8 g/dL (32-36); Mean Corpuscular Volume 90.6 fL (80-100); Mean Platelet Volume 9.5 fL (7.4-10.4); Monocytes # (auto) 0.48 K/uL (0.11-0.59); Monocytes % (auto) 7.3 %; Neutrophils # (auto) 5.07 K/uL (1.4-6.5); Neutrophils % (auto) 77.3 %; Platelet Count 231 K/uL (130-400); RDW Coefficient of Variation 14.7 % (11.5-14.5); RDW Standard Deviation 48.7 fL (36.4-46.3); Red Blood Count 3.93 M/uL (4.7-6.1); White Blood Count 6.56 K/uL (4.8-10.8)
[2021-01-08 12:06] LABS: Base Excess VBG 0.9 mEq/L; HCO3 VBG 24 mmol/L; PCO2 VBG 34 mmHg (38-50); PO2 VBG 23 mmHg; pH VBG 7.47 (7.36-7.41)
[2021-01-08 12:07] LABS: Oxygen Saturation VBG < 60.0 %
[2021-01-08 12:08] LABS: Appearance Urine Clear (Clear); Bacteria Urine Automated Negative (Negative); Bilirubin Urine Negative (Negative); Blood Urine Negative (Negative); Color Urine Dark Yellow; Glucose Urine UA Negative (Negative); Ketones Urine Trace (Negative); Leukocyte Esterase Urine Negative (Negative); Nitrite Urine Negative (Negative); RBC Urine Automated 0-4 /hpf (0-4); Specific Gravity Urine 1.024 (1.000-1.030); Urobilinogen Urine Negative (Negative); pH Urine 7.5 (4.5-7.5)
[2021-01-08 12:15] LABS: INR 1.3 (0.9-1.1); Partial Thromboplastin Ratio 1.3; Partial Thromboplastin Time 33.5 Seconds (21.0-31.0); Prothrombin Time 12.7 Seconds (9.0-12.0)
[2021-01-08 12:20] LABS: BUN Creatinine Ratio 15.5 (10-20); Calcium 9.3 mg/dl (8.5-10.1); Creatinine Clr Calc Pharmacy 64.6 ml/min; Est GFR (African American) 76.8 ml/min; Est GFR (Non-African American) 66.2 ml/min; Potassium 3.9 mmol/L (3.5-5.1)
[2021-01-08 12:21] LABS: Protein Urine 1+ (Negative)
[2021-01-08 12:27] LABS: Troponin I 0.05 ng/ml (0-0.045)
--- NOTE | 2021-01-08 12:27 | CT Scan Report ---
CT head/brain wo con CLINICAL HISTORY: 75 years-old Male with weakness. Acute weakness TECHNIQUE: Multiple axial CT images of the head were obtained without contrast. A dose lowering tech nique was utilized adhering to the principles of ALARA. CT DOSE: 537.48 mGy.cm COMPARISON: None. FINDINGS: No acute intracranial hemorrhage, midline shift, intracranial mass, hydrocephalus, territorial ischem ia or abnormal extra-axial collection. Mild age-related involutional changes. White matter hypodensit ies suggest chronic microvascular ischemic disease. Cerebral vascular calcifications. The calvarium is intact. The paranasal sinuses, mastoid air cells, and middle ear cavities are clear . IMPRESSION: No acute intracranial abnormality. ACT 112: Negative or not required by law. The above report was generated using voice recognition software. It may contain grammatical, syntax o r spelling errors. Electronically signed by: Laith Scott M.D. 01/08/2021 12:26 PM
--- NOTE | 2021-01-08 13:05 | Emergency Department Note ---
History of Present Illness General Chief complaint: Shortness of Breath/Dyspnea Stated complaint: SOB,RAPID HEART RATE,WEAK Time Seen by Provider: 01/08/21 11:06 History of Present Illness Provider complaint: Started the breath on the Lethargy Onset (ago): week(s) 1 Location: chest Associated symptoms: + chest pain, + cough, + shortness of breath and + weakness; no fever/chills, no headaches or no nausea/vomiting 75-year-old male on Xarelto presents to the emergency department for weakness. Patient states over the last week he has been feeling increasingly weak. He reports on and off left chest pain and shortness of breath. Patient is on Xarelto for atrial fibrillation. Patient denies hematuria, dysuria, melena or hematochezia. Patient does report cough with productive mucus. No hemoptysis. No recent falls. Patient has a history of lung cancer but is not currently receiving chemo or radiation therapy. Home Medications Medication Instructions Recorded Confirmed Type ferrous sulfate 325 mg (65 mg 325 mg PO Q2D 07/30/18 01/08/21 History iron) tablet,delayed release albuterol sulfate 90 mcg/actuation 2 puff INHALATION Q4H PRN 09/16/18 01/08/21 History aerosol inhaler (Ventolin HFA) atorvastatin 80 mg tablet 80 mg PO HS 10/19/18 01/08/21 History fish oil-dha-epa 1,200 mg-144 1 cap PO HS 10/19/18 01/08/21 History mg-216 mg capsule potassium chloride 10 mEq 10 meq PO QAM tab 05/10/20 01/08/21 History tablet,extended release aspirin 81 mg tablet,delayed 81 mg PO QAM 05/18/20 01/08/21 History release magnesium oxide 500 mg tablet 500 mg PO HS 05/18/20 01/08/21 History (Neely) nitroglycerin 0.4 mg sublingual 0.4 mg SL Q5M PRN #25 tab 11/08/20 01/08/21 Rx tablet diclofenac sodium 1 % topical gel 2 g TOPICAL TID 12/04/20 01/08/21 History (Voltaren Arthritis Pain) furosemide 40 mg tablet (Lasix) 60 mg PO QAM 12/04/20 01/08/21 History rivaroxaban 20 mg tablet (Xarelto) 20 mg PO QDD 12/04/20 12/04/20 History sacubitril 49 mg-valsartan 51 mg 1 tab PO BIDM 12/04/20 12/04/20 History tablet (Entresto) prednisone 10 mg tablet 10 mg PO .COMPLEX #61 tab 12/06/20 Rx Allergies Allergy/AdvReac Type Severity Reaction Status Date / Time No Known Drug Allergies Allergy Verified 01/08/21 14:07 Past Med/Surg History Medical History Adenocarcinoma of left lung Allergic rhinitis with postnasal drip Aortic stenosis S/p TAVR 2019 Atrial flutter Borderline diabetic DIET CONTROLLED CAD (coronary artery disease), tribe coronary artery S/p multiple heart stents - most recent PCI to RCA in 2019 Cardiomyopathy Transient severely reduced LV systolic function in 2019- has since turned to chronic baseline of mildly reduced LV function Chronic systolic CHF (congestive heart failure) Gout "RECENT FLARE UP" Hx of cancer of lung CHEMO AND RADIATION (2014 DX) Hypertension Myocardial Infarction 2005 AND 2007 Osteoarthritis Pericardial effusion Peripheral edema Peripheral neuropathy Portacaval encephalopathy SOB (shortness of breath) Surgical History H/O hernia repair Ventral hernia repair History of appendectomy "WHEN REMOVED, FOUND BENIGN TUMOR" History of bronchoscopy History of cardiac cath Multiple- most recent 2019 History of colonoscopy History of esophagogastroduodenoscopy (EGD) History of heart artery stent 2 STENTS PLACED IN STENT 2007/REPLACED 1 STENT 2019>DONE AT [facility] History of lung biopsy History of vascular access device PORT LEFT CHEST WALL (CURRENLTY) S/P TAVR (transcatheter aortic valve replacement) 12/14/18 AT [facility] Family History Sister , passed from old age Bone cancer Sister Pancreatic cancer Sister Lung cancer Brother Kidney carcinoma Brother Colorectal cancer Brother Stomach cancer several kinds of cancer; had BMT Mother Family history of diabetes mellitus Other Family history non-contributory No family history of adverse response to anesthesia Social History Smoking Status: Former smoker Tobacco Type: Cigarettes packs per day: 2; Cigarettes Per Day: 40; Number of Years Since Quit: 15; Second Hand Exposure: No; Hx Alcohol Use: Yes Alcohol type: other Alcohol type Comment: once per year on special occasions; stopped drinking beer due to meds Hx Substance Use: No Preferred Language: Belarusian Communication Ability: Effective Hearing Ability: Normal Lieutenant Fire 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 Required: No Beliefs That Will Affect Care: None marital status: Single Current Living Situation: Alone Current Living Situation Comment: both siblings he lived with passed last year; family in neighborhood current occupational status: 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 How many Children do You have: 0 Feels Safe at Home: Yes Diet Comment: cardiac caffeine: Yes (coffee 2 cups each morning) during the past year weight has: remained stable Dental Care, Regularly: Yes Physical Activity Frequency: Does not Exercise Physical Activity Frequency Comment: "I walk 2 miles per day in the better [place]" Seatbelt Use: always Sunscreen Use: Yes ("if I were at a beach") Assistive Devices: Glasses Review of Systems A total of 10 systems reviewed and were otherwise negative Physical Exam Vital Signs Vital Signs - 24 hr 01/08/21 10:51 01/08/21 11:53 01/08/21 12:00 Temperature 37.6 C H Temperature Source Oral Pulse Rate 118 H 81 Pulse Rate from SpO2 Sensor 79 Respiratory Rate 20 21 Respiratory Effort / Characteristics Non-Labored Spontaneous Non-Labored Spontaneous Respiratory Depth Normal Normal Respiratory Pattern Regular Regular Blood Pressure 116/78 111/58 L Blood Pressure Mean 90 75 Pulse Oximetry 93 90 Oxygen Delivery Method Room Air Room Air Sepsis Recent Fever Within 48 Hours No Sepsis New/Unexplained Change in Mental Status N/A Sepsis Action Taken by Nursing No Action Required 01/08/21 12:28 01/08/21 12:30 01/08/21 13:00 Temperature Temperature Source Pulse Rate 76 70 88 Pulse Rate from SpO2 Sensor 75 68 86 Respiratory Rate 23 24 24 Respiratory Effort / Characteristics Respiratory Depth Respiratory Pattern Blood Pressure 120/50 L 102/60 110/65 Blood Pressure Mean 73 74 80 Pulse Oximetry 92 91 92 Oxygen Delivery Method Sepsis Recent Fever Within 48 Hours Sepsis New/Unexplained Change in Mental Status Sepsis Action Taken by Nursing 01/08/21 13:30 Temperature Temperature Source Pulse Rate 69 Pulse Rate from SpO2 Sensor 69 Respiratory Rate 24 Respiratory Effort / Characteristics Respiratory Depth Respiratory Pattern Blood Pressure 101/56 L Blood Pressure Mean 71 Pulse Oximetry 94 Oxygen Delivery Method Sepsis Recent Fever Within 48 Hours Sepsis New/Unexplained Change in Mental Status Sepsis Action Taken by Nursing Physical Exam GENERAL: He is oriented to person, place, and time. He appears well-developed and well-nourished. He does not appear distressed. HENT: Exam performed. - Head: Normocephalic and atraumatic. - Right Ear: External ear normal. No mastoid tenderness. - Left Ear: External ear normal. No mastoid tenderness. - Mouth/Throat: The oropharynx is clear and moist. No trismus in the jaw. No dental abscesses or uvula swelling. No oropharyngeal exudate or tonsillar abscesses. EYES: Conjunctivae and EOM are normal. Pupils are equal, round, and reactive to light. Right eye exhibits no discharge. Left eye exhibits no discharge. No scleral icterus. NECK: Normal range of motion. Neck supple. No JVD present. No spinous process tenderness present. No carotid bruit present. No rigidity. No tracheal deviation and normal range of motion present. No Brudzinski's sign and no Kernig's sign noted. CV: Normal rate, irregular rhythm, normal heart sounds and intact distal pulses. There is no peripheral edema. Palpable radial pulses bue. PULM/CHEST: Effort normal and breath sounds normal. No respiratory distress. No stridor. He has no wheezes. He has no rales. - Chest Wall: He exhibits no tenderness. ABD: The abdomen is soft. Bowel sounds are normal. He has no distension. No mass is present. There is no tenderness. There is no rebound, no guarding, no Hunter's sign and no tenderness at McBurney's point. Rovsig negative. MUSC/SKEL: Normal range of motion. There is no peripheral edema, tenderness or deformity. LYMPH: No cervical adenopathy. NEURO: He is alert and oriented to person, place, and time. He has normal strength. No cranial nerve deficit or sensory deficit. Coordination and gait normal. GCS eye subscore is 4. GCS verbal subscore is 5. GCS motor subscore is 6. Cerebellar tests wnl. SKIN: Skin is warm and dry. He is not diaphoretic. PSYCH: He has a normal mood and affect. Behavior is normal. Judgment and thought content normal. Course Course 1106: The patient was evaluated in room A9. A complete history and physical exam was performed Cardiac monitoring: An order was placed for continuous cardiac monitoring. The monitor shows a rate of 80 with atrial flutter rhythm 1320: Vital signs stable. Labs show an elevated troponin. Creatinine normal. Chest x-ray shows left perihilar opacity which has progressed since the previous chest x-ray. Patient has not reported any fevers and has no leukocytosis, thought less likely to be pneumonia. Patient be admitted to the hospital for NSTEMI. No need for anticoagulation as patient is on Xarelto already. [facility]. Medical Decision Making Laboratory Data Result diagrams: 01/08/21 11:50 01/08/21 11:50 Lab Results 01/08/21 01/08/21 01/08/21 Range/Units 11:45 11:50 11:50 WBC (4.8-10.8) K/uL RBC (4.7-6.1) M/uL Hgb (14.0-18.0) g/dL Hct (42-52) % MCV (80-100) fL MCH (25-34) pg MCHC (32-36) g/dL RDW Std Deviation (36.4-46.3) fL RDW Coeff of Tiff (11.5-14.5) % Plt Count (130-400) K/uL MPV (7.4-10.4) fL Immature Gran % (Auto) % Neut % (Auto) % Lymph % (Auto) % [place] % (Auto) % Eos % (Auto) % Baso % (Auto) % Neut # (Auto) (1.4-6.5) K/uL Lymph # (Auto) (1.2-3.4) K/uL [place] # (Auto) (0.11-0.59) K/uL Eos # (Auto) (0-0.5) K/uL Baso # (Auto) (0-0.2) K/uL Immature Gran # (Auto) (0.00-0.02) K/uL PT 12.7 H (9.0-12.0) Seconds INR 1.3 H (0.9-1.1) APTT 33.5 H (21.0-31.0) Seconds PTT Ratio 1.3 VBG pH (7.36-7.41) VBG pCO2 (38-50) mmHg VBG pO2 mmHg VBG HCO3 mmol/L VBG O2 Saturation % VBG Base Excess mEq/L Barometric Pressure mm/Hg Sodium 134 L (136-145) mmol/L Potassium 3.9 (3.5-5.1) mmol/L Chloride 101 (98-107) mmol/L Carbon Dioxide 23 (21-32) mmol/L Anion Gap 10.0 (3-11) BUN 17 (7-18) mg/dl Creatinine 1.10 (0.6-1.4) mg/dl Est Cr Clr Drug Dosing 64.6 ml/min Est GFR ( Amer) 76.8 ml/min Est GFR (Non-Af Amer) 66.2 ml/min BUN/Creatinine Ratio 15.5 (10-20) Glucose 147 H (70-99) mg/dl Calcium 9.3 (8.5-10.1) mg/dl Troponin I 0.050 H* (0-0.045) ng/ml NT-Pro-B Natriuret Pep 791 (0-900) pg/ml Lipase 231 (73-393) U/L Urine Color Dark Yellow Urine Appearance Clear (Clear) Urine pH 7.5 (4.5-7.5) Ur Specific [place] 1.024 (1.000-1.030) Urine Protein 1+ H (Negative) Urine Glucose (UA) Negative (Negative) Urine Ketones Trace H (Negative) Urine Blood Negative (Negative) Urine Nitrite Negative (Negative) Urine Bilirubin Negative (Negative) Urine Urobilinogen Negative (Negative) Ur Leukocyte Esterase Negative (Negative) Urine WBC (Auto) 1-5 (0-5) /hpf Urine RBC (Auto) 0-4 (0-4) /hpf U Hyaline Cast (Auto) 1-5 (0-5) /lpf U Epithel Cells (Auto) 5-10 H (0-5) /lpf Urine Bacteria (Auto) Negative (Negative) COVID-19 Eval Order SARS-CoV-2 (PCR) (Negative) 01/08/21 01/08/21 01/08/21 Range/Units 11:50 11:50 11:53 WBC 6.56 (4.8-10.8) K/uL RBC 3.93 L (4.7-6.1) M/uL Hgb 12.4 L (14.0-18.0) g/dL Hct 35.6 L (42-52) % MCV 90.6 (80-100) fL MCH 31.6 (25-34) pg MCHC 34.8 (32-36) g/dL RDW Std Deviation 48.7 H (36.4-46.3) fL RDW Coeff of Tiff 14.7 H (11.5-14.5) % Plt Count 231 (130-400) K/uL MPV 9.5 (7.4-10.4) fL Immature Gran % (Auto) 0.6 % Neut % (Auto) 77.3 % Lymph % (Auto) 12.5 % [place] % (Auto) 7.3 % Eos % (Auto) 2.1 % Baso % (Auto) 0.2 % Neut # (Auto) 5.07 (1.4-6.5) K/uL Lymph # (Auto) 0.82 L (1.2-3.4) K/uL [place] # (Auto) 0.48 (0.11-0.59) K/uL Eos # (Auto) 0.14 (0-0.5) K/uL Baso # (Auto) 0.01 (0-0.2) K/uL Immature Gran # (Auto) 0.04 H (0.00-0.02) K/uL PT (9.0-12.0) Seconds INR (0.9-1.1) APTT (21.0-31.0) Seconds PTT Ratio VBG pH 7.47 H (7.36-7.41) VBG pCO2 34 L (38-50) mmHg VBG pO2 23 mmHg VBG HCO3 24 mmol/L VBG O2 Saturation < 60.0 % VBG Base Excess 0.9 mEq/L Barometric Pressure 735.4 mm/Hg Sodium (136-145) mmol/L Potassium (3.5-5.1) mmol/L Chloride (98-107) mmol/L Carbon Dioxide (21-32) mmol/L Anion Gap (3-11) BUN (7-18) mg/dl Creatinine (0.6-1.4) mg/dl Est Cr Clr Drug Dosing ml/min Est GFR ( Amer) ml/min Est GFR (Non-Af Amer) ml/min BUN/Creatinine Ratio (10-20) Glucose (70-99) mg/dl Calcium (8.5-10.1) mg/dl Troponin I (0-0.045) ng/ml NT-Pro-B Natriuret Pep (0-900) pg/ml Lipase (73-393) U/L Urine Color Urine Appearance (Clear) Urine pH (4.5-7.5) Ur Specific [place] (1.000-1.030) Urine Protein (Negative) Urine Glucose (UA) (Negative) Urine Ketones (Negative) Urine Blood (Negative) Urine Nitrite (Negative) Urine Bilirubin (Negative) Urine Urobilinogen (Negative) Ur Leukocyte Esterase (Negative) Urine WBC (Auto) (0-5) /hpf Urine RBC (Auto) (0-4) /hpf U Hyaline Cast (Auto) (0-5) /lpf U Epithel Cells (Auto) (0-5) /lpf Urine Bacteria (Auto) (Negative) COVID-19 Eval Order Covid19 at [facility] SARS-CoV-2 (PCR) (Negative) 01/08/21 Range/Units 11:53 WBC (4.8-10.8) K/uL RBC (4.7-6.1) M/uL Hgb (14.0-18.0) g/dL Hct (42-52) % MCV (80-100) fL MCH (25-34) pg MCHC (32-36) g/dL RDW Std Deviation (36.4-46.3) fL RDW Coeff of Tiff (11.5-14.5) % Plt Count (130-400) K/uL MPV (7.4-10.4) fL Immature Gran % (Auto) % Neut % (Auto) % Lymph % (Auto) % [place] % (Auto) % Eos % (Auto) % Baso % (Auto) % Neut # (Auto) (1.4-6.5) K/uL Lymph # (Auto) (1.2-3.4) K/uL [place] # (Auto) (0.11-0.59) K/uL Eos # (Auto) (0-0.5) K/uL Baso # (Auto) (0-0.2) K/uL Immature Gran # (Auto) (0.00-0.02) K/uL PT (9.0-12.0) Seconds INR (0.9-1.1) APTT (21.0-31.0) Seconds PTT Ratio VBG pH (7.36-7.41) VBG pCO2 (38-50) mmHg VBG pO2 mmHg VBG HCO3 mmol/L VBG O2 Saturation % VBG Base Excess mEq/L Barometric Pressure mm/Hg Sodium (136-145) mmol/L Potassium (3.5-5.1) mmol/L Chloride (98-107) mmol/L Carbon Dioxide (21-32) mmol/L Anion Gap (3-11) BUN (7-18) mg/dl Creatinine (0.6-1.4) mg/dl Est Cr Clr Drug Dosing ml/min Est GFR ( Amer) ml/min Est GFR (Non-Af Amer) ml/min BUN/Creatinine Ratio (10-20) Glucose (70-99) mg/dl Calcium (8.5-10.1) mg/dl Troponin I (0-0.045) ng/ml NT-Pro-B Natriuret Pep (0-900) pg/ml Lipase (73-393) U/L Urine Color Urine Appearance (Clear) Urine pH (4.5-7.5) Ur Specific [place] (1.000-1.030) Urine Protein (Negative) Urine Glucose (UA) (Negative) Urine Ketones (Negative) Urine Blood (Negative) Urine Nitrite (Negative) Urine Bilirubin (Negative) Urine Urobilinogen (Negative) Ur Leukocyte Esterase (Negative) Urine WBC (Auto) (0-5) /hpf Urine RBC (Auto) (0-4) /hpf U Hyaline Cast (Auto) (0-5) /lpf U Epithel Cells (Auto) (0-5) /lpf Urine Bacteria (Auto) (Negative) COVID-19 Eval Order SARS-CoV-2 (PCR) NEGATIVE (Negative) Imaging Data Radiologist's Impression: Head CT 01/08/21 11:18 CT head/brain wo con CLINICAL HISTORY: 75 years-old Male with weakness. Acute weakness TECHNIQUE: Multiple axial CT images of the head were obtained without contrast. A dose lowering technique was utilized adhering to the principles of ALARA. CT DOSE: 537.48 mGy.cm COMPARISON: None. FINDINGS: No acute intracranial hemorrhage, midline shift, intracranial mass, hydrocephalus, territorial ischemia or abnormal extra-axial collection. Mild age-related involutional changes. White matter hypodensities suggest chronic microvascular ischemic disease. Cerebral vascular calcifications. The calvarium is intact. The paranasal sinuses, mastoid air cells, and middle ear cavities are clear. IMPRESSION: No acute intracranial abnormality. ACT 112: Negative or not required by law. The above report was generated using voice recognition software. It may contain grammatical, syntax or spelling errors. Electronically signed by: Laith Scott M.D. 01/08/2021 12:26 PM Chest X-Ray 01/08/21 11:19 XR chest 1V portable CLINICAL HISTORY: Atypical chest pain. History of lung cancer. COMPARISON STUDY: Chest radiograph and chest CT December 04, 2020. FINDINGS: A left internal jugular [id number] is in place. There is a prosthetic aortic valve. The cardiomediastinal silhouette is stable. Dense left perihilar opacity has slightly progressed. IMPRESSION: Dense left perihilar opacity which has slightly progressed since prior chest radiograph and chest CT. This favors postradiation change however an infectious process could appear similar. Radiographic follow-up is recommended. ACT 112: Negative or not required by law. Electronically signed by: Charan Hernandez M.D. 01/08/2021 1:16 PM ECG Data Indication: + weakness Rate (beats per minute): 80 Rhythm: + atrial flutter ECG ST segments: + Normal ST segments Additional Comments: QRS 74 QTC 408 MDM Narrative 1106: The patient was evaluated in room A9. A complete history and physical exam was performed Cardiac monitoring: An order was placed for continuous cardiac monitoring. The monitor shows a rate of 80 with atrial flutter rhythm 1320: Vital signs stable. Labs show an elevated troponin. Creatinine normal. Chest x-ray shows left perihilar opacity which has progressed since the previous chest x-ray. Patient has not reported any fevers and has no leukocytosis, thought less likely to be pneumonia. Patient be admitted to the hospital for NSTEMI. No need for anticoagulation as patient is on Xarelto already. [facility]. Impression & Plan Non-ST elevation MT (NSTEMI) Discharge Plan Visit Data Chief Complaint: Shortness of Breath/Dyspnea Stated Complaint: SOB,RAPID HEART RATE,WEAK ED Provider: Sha Nelson Discharge Problem: Non-ST elevation MT (NSTEMI) Patient Disposition: Admitted As Inpatient Forms Stand Alone Forms: [facility], Virtual Emergency Department, Important Visit Information Prescriptions Prescriptions: No Action nitroglycerin 0.4 mg tablet, sublingual 0.4 mg SL Q5M PRN (Reason: chest pain) Qty: 25 RF: 3 prednisone 10 mg tablet 10 mg PO .COMPLEX Qty: 61 RF: 1 atorvastatin 80 mg tablet 80 mg PO HS RF: 0 fish oil-dha-epa 1,200-144-216 mg Capsule 1 cap PO HS RF: 0 potassium chloride 10 mEq tablet extended release 10 meq PO QAM RF: 0 ferrous sulfate 325 mg (65 mg iron) Tablet,Delayed Release (Dr/Ec) 325 mg PO Q2D RF: 0 albuterol sulfate [Ventolin HFA] 90 mcg/actuation HFA aerosol inhaler 2 puff inhalation Q4H PRN (Reason: Shortness Of Breath Or Wheezing) RF: 0 magnesium oxide [Neely] 500 mg Tablet 500 mg PO HS RF: 0 aspirin 81 mg tablet,delayed release (DR/EC) 81 mg PO QAM RF: 0 furosemide [Lasix] 40 mg tablet 60 mg PO QAM RF: 0 Xarelto 20 mg tablet 20 mg PO QDD RF: 0 Entresto 49-51 mg tablet 1 tab PO BIDM RF: 0 diclofenac sodium [Voltaren Arthritis Pain] 1 % gel 2 g TOPICAL TID RF: 0 Referrals Referrals: PCP,NO [Primary Care Provider] -
--- NOTE | 2021-01-08 13:18 | XRay Report ---
XR chest 1V portable CLINICAL HISTORY: Atypical chest pain. History of lung cancer. COMPARISON STUDY: Chest radiograph and chest CT December 04, 2020. FINDINGS: A left internal jugular [id number]-Kzvr is in place. There is a prosthetic aortic valve. The cardiomediastinal silhouette is stable. Dense left perihilar opacity has slightly progressed. IMPRESSION: Dense left perihilar opacity which has slightly progressed since prior chest radiograph and chest CT. This favors postradiation change however an infectious process could appear similar. Ra diographic follow-up is recommended. ACT 112: Negative or not required by law. Electronically signed by: Charan Hernandez M.D. 01/08/2021 1:16 PM
[2021-01-08] MEDS ORDERED: OPTIRAY 320 125ml IV ONE (14:23)
--- NOTE | 2021-01-08 14:25 | History & Physical Report ---
Date of Service January 08, 2021 Assessment & Plan (1) Atrial flutter: Plan: Elevated troponin/CAD/atrial flutter/pericardial effusion/status post TAVR- The patient will be admitted to telemetry for serial cardiac enzymes, serial EKG's, cardiac rhythm monitoring and a 2-D echocardiogram with Dopplers. Continue aspirin, furosemide, potassium chloride, Xarelto and Entresto. Likely supply demand mismatch associated pulmonary process Consult his loom checker Dr. Calvillo (2) Post-radiation pneumonitis: Plan: Post radiation pneumonitis/stage III squamous cell carcinoma of the lung productive cough/weakness/fatigue- Chest x-ray and CTA unclear with potential for possible infectious process and/or metastatic disease. Coupled with his cough, hypoxia and other symptoms, will place on Zosyn 4.5 g IV every 8 hours. Duonebs every 4 hours while awake and every 2 hours when necessary. Nasal cannula oxygen, titrate to pulse ox greater than equal to 95% (3) 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: Plan: CTA notes progressive subcarinal and and right hilar lymphadenopathy, that bears watching on future examinations exclude the possibility metastatic disease Consult his brim presser Dr. Lee (4) CAD (coronary artery disease), [place] coronary artery: Plan: See above (5) Non-ST elevation [place] (NSTEMI): Plan: See above (6) Pericardial effusion: Plan: see above (7) S/P TAVR (transcatheter aortic valve replacement): Plan: see above (8) Chronic systolic CHF (congestive heart failure): Plan: see above History of Present Illness Chief Complaint: The patient presents to the emergency department with 1 week of generalized weakness, productive cough, dyspnea on exertion and shortness of breath, and increased need for sleep, reporting he sleeps up to 20 hours a day. Primary Care Provider: NO PCP The patient is a 75-year-old male with a past medical history including radiation pneumonitis, allergic rhinitis, pericardial effusion, status post TAVR, chronic systolic CHF, atrial flutter, CAD, left pulmonary nodule, and stage III squamous cell carcinoma of left lung. He presents with symptoms as noted above. Work-up in the emergency department included the following abnormal laboratories: Troponin 0.050, INR 1.3, hemoglobin 12.4, hematocrit 35.6, glucose 147 Chest x-ray: Dense left perihilar opacity which is slightly progressed since prior chest radiograph and chest CT. His fevers post radiation change however in infectious process could appear similar. Radiographic follow-up is recommended CTA angio PE protocol: No evidence for acute pulmonary embolus. Chronic pulmonary embolus is favored. Progressive left perihilar bandlike consolidation favoring post radiation pneumonitis, although a superimposed infectious process or underlying neoplastic process cannot be excluded. Small to moderate pericardial effusion with a small left pleural effusion has slightly progressed in the interval. Progressive subcarinal and right hilar lymphadenopathy. These bear watching a future examination to exclude the possibility metastatic disease. Allergies Allergy/AdvReac Type Severity Reaction Status Date / Time No Known Drug Allergies Allergy Verified 01/08/21 14:07 Home Medications Medication Instructions Recorded Confirmed Type ferrous sulfate 325 mg (65 mg 325 mg PO Q2D 07/30/18 12/04/20 History iron) tablet,delayed release albuterol sulfate 90 mcg/actuation 2 puff INHALATION Q4H PRN 09/16/18 12/04/20 History aerosol inhaler (Ventolin HFA) atorvastatin 80 mg tablet 80 mg PO HS 10/19/18 12/04/20 History fish oil-dha-epa 1,200 mg-144 1 cap PO HS 10/19/18 12/04/20 History mg-216 mg capsule potassium chloride 10 mEq 10 meq PO QAM tab 05/10/20 12/04/20 History tablet,extended release aspirin 81 mg tablet,delayed 81 mg PO QAM 05/18/20 12/04/20 History release magnesium oxide 500 mg tablet 500 mg PO HS 05/18/20 12/04/20 History ([place]) nitroglycerin 0.4 mg sublingual 0.4 mg SL Q5M PRN #25 tab 11/08/20 12/04/20 Rx tablet diclofenac sodium 1 % topical gel 2 g TOPICAL TID 12/04/20 12/04/20 History (Voltaren Arthritis Pain) furosemide 40 mg tablet (Lasix) 60 mg PO QAM 12/04/20 12/04/20 History rivaroxaban 20 mg tablet (Xarelto) 20 mg PO QDD 12/04/20 12/04/20 History sacubitril 49 mg-valsartan 51 mg 1 tab PO BIDM 12/04/20 12/04/20 History tablet (Entresto) allopurinol 100 mg tablet 200 mg PO QAM 01/08/21 01/08/21 History (Zyloprim) Past Med/Surg History Medical History (Updated 01/08/21 @ 15:28 by Evan Goss MD) Adenocarcinoma of left lung Allergic rhinitis with postnasal drip Aortic stenosis S/p TAVR 2019 Atrial flutter Borderline diabetic DIET CONTROLLED CAD (coronary artery disease), [place] coronary artery S/p multiple heart stents - most recent PCI to RCA in 2019 Cardiomyopathy Transient severely reduced LV systolic function in 2019- has since turned to chronic baseline of mildly reduced LV function Chronic systolic CHF (congestive heart failure) Gout "RECENT FLARE UP" Hx of cancer of lung CHEMO AND RADIATION (2015 DX) Hypertension Myocardial Infarction 2005 AND 2007 Osteoarthritis Pericardial effusion Peripheral edema Peripheral neuropathy Portacaval encephalopathy SOB (shortness of breath) Surgical History H/O hernia repair Ventral hernia repair History of appendectomy "WHEN REMOVED, FOUND BENIGN TUMOR" History of bronchoscopy History of cardiac cath Multiple- most recent 2019 History of colonoscopy History of esophagogastroduodenoscopy (EGD) History of heart artery stent 2 STENTS PLACED IN STENT 2007/REPLACED 1 STENT 2019>DONE AT [facility] History of lung biopsy History of vascular access device PORT LEFT CHEST WALL (CURRENLTY) S/P TAVR (transcatheter aortic valve replacement) 12/14/18 AT [facility] Family History Sister , passed from old age Bone cancer Sister Pancreatic cancer Sister Lung cancer Brother Kidney carcinoma Brother Colorectal cancer Brother Stomach cancer several kinds of cancer; had BMT Mother Family history of diabetes mellitus Other Family history non-contributory No family history of adverse response to anesthesia Social History Smoking Status: Former smoker Tobacco Type: Cigarettes packs per day: 2; Cigarettes Per Day: 40; Number of Years Since Quit: 15; Second Hand Exposure: No; Hx Alcohol Use: Yes Alcohol type: other Alcohol type Comment: once per year on special occasions; stopped drinking beer due to meds Hx Substance Use: No Preferred Language: Occitan Communication Ability: Effective Hearing Ability: Normal Lead Accountant Required: No Beliefs That Will Affect Care: None marital status: Single Current Living Situation: Alone Current Living Situation Comment: both siblings he lived with passed last year; family in neighborhood current occupational status: retired 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 How many Children do You have: 0 Feels Safe at Home: Yes Diet Comment: cardiac caffeine: Yes (coffee 2 cups each morning) during the past year weight has: remained stable Dental Care, Regularly: Yes Physical Activity Frequency: Does not Exercise Physical Activity Frequency Comment: "I walk 2 miles per day in the better weather" Seatbelt Use: always Sunscreen Use: Yes ("if I were at a beach") Assistive Devices: Glasses Review of Systems Review of Systems: The patient denies palpitations, lower extremity swelling, sore throat, fevers, chills, sweats, nausea, vomiting, diarrhea , constipation, abdominal pain, pelvic pain, blood in urine or stool, dysuria, urinary frequency or urgency, lightheadedness, dizziness, headache, memory loss, loss of consciousness, rash, abnormal bruising or bleeding, imbalance, focal weakness, numbness or tingling in arms or legs, generalized arthralgias or myalgias, back or neck pain, or night sweats. The review of systems is otherwise negative other than for that already noted above, and at least 10 systems have been reviewed. Physical Exam Physical Exam: The patient is awake, alert and oriented 3, well developed and well nourished, normocephalic and atraumatic, lying in bed and in no acute distress. HEENT--PERRL, EOMI, mucous membranes and oropharynx normal. Neck--supple. No JVD. No bruits. Thyroid normal, trachea midline, no adenopathy. Heart--normal S1 and S2. No murmurs, rubs or gallops. Lungs--coarse breath sounds and crackles on the left, clearer on the right. No respiratory distress, no accessory muscle use. Abdomen--normal bowel sounds and soft. Nontender. Nondistended, no hernias or masses, no organomegaly. Extremities--no cyanosis or clubbing. No edema. Dermatologic--normal skin turgor, normal color, no abnormal lymph nodes, no rash. Neurologic--cranial nerves II through XII grossly intact. Rheumatologic--normal range of motion. Psychiatric--normal affect. Results & Data Results & Data ([facility]) Vital Signs (Past 12 Hours) Vital Signs Temp Pulse Resp BP Pulse Ox 01/08/21 13:30 69 24 101/56 L 94 01/08/21 13:00 88 24 110/65 92 01/08/21 12:30 70 24 102/60 91 01/08/21 12:28 76 23 120/50 L 92 01/08/21 12:00 81 21 111/58 L 90 01/08/21 10:51 99.7 F H 118 H 20 116/78 93 ECG Additional Comments: atrial flutter @ 80 bpm Code Status & VTE Plan Code Status Full code VTE Prophylaxis Plan VTE Prophylaxis will be ordered: Yes PG Care Time/CCT Total # of Minutes Spent Total Time Spent with Patient: Total time spent is greater than 50% in coordination of care (as documented) at patient's floor/unit and/or counseling patient: Coding Level of Care Code 15474 Initial Inpt Care Lvl 3 Diagnoses Atrial flutter I48.92 CAD (coronary artery disease), [place] coronary artery I25.10 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 C34.90 Post-radiation pneumonitis J70.0 Non-ST elevation [place] (NSTEMI) I21.4 Pericardial effusion I31.3 S/P TAVR (transcatheter aortic valve replacement) Z95.2 Chronic systolic CHF (congestive heart failure) I50.22
--- NOTE | 2021-01-08 14:56 | CT Scan Report ---
CHEST CTA for PULMONARY ARTERIES CT DOSE: 578.76 mGy.cm HISTORY: Atypical chest pain. Shortness of breath. TECHNIQUE: Multiaxial CT images of the chest were performed following the intravenous administration of contrast to evaluate the pulmonary arteries. Maximal intensity projection images were also obtaine d. A dose lowering technique was utilized adhering to the principles of ALARA. COMPARISON STUDY: Chest CTA 12/04/2020.. FINDINGS: A left jugular Port-A-Cath terminates in the SVC. An aortic valve stent is noted. Normal ca liber thoracic aorta with no evidence for dissection. Prominent left superior mediastinal lymph nodes remain stable and continue to measure subcentimeter in short axis diameter. Dominant lymph node evette ures 7 mm. Progressive right hilar and subcarinal lymphadenopathy. The subcarinal lymph node now evette ures 2 cm and a dominant right hilar lymph node measures 1.5 cm. Normal esophagus. Limited views of t he upper abdomen demonstrate a normal liver, spleen, and adrenal glands. Mild bilateral gynecomastia is again noted. The thyroid gland enhances normally. Small to moderate pericardial effusion which has progressed. The heart remains mildly enlarged. There is a small left pleural effusion, which is also progressed. Small amount peripheral calcification within the distal left main pulmonary artery, unch anged. This favors a small amount of chronic pulmonary embolus. No new filling defects within the pul monary arteries to suggest an acute pulmonary embolus. Emphysema. No pneumothorax. Progressive bandli ke consolidation within the left perihilar location is noted. This obscures the 18 mm irregular nodul e described on the prior study. This is nonspecific but favors post radiation pneumonitis. Underlying infection or neoplastic change cannot be excluded. Small linear scarlike density within the right wilbur ng anteriorly. No suspicious lytic or blastic osseous lesions. IMPRESSION: 1. No evidence for acute pulmonary embolus. There is a small amount of peripheral calcification withi n the distal left main pulmonary artery which remains unchanged. This is consistent with chronic pulm onary embolus. 2. Progressive left perihilar bandlike consolidation. This favors post radiation pneumonitis. A super imposed infectious process or underlying neoplastic process cannot be excluded. 3. Small to moderate pericardial effusion and a small left pleural effusion. These have slightly prog ressed in the interval. 4. Emphysema. 5. Progressive subcarinal and right hilar lymphadenopathy. These bear watching on future examinations to exclude the possibility of metastatic disease. 6. Additional findings as described above. ACT 112: Negative or not required by law. Electronically signed by: Luciano Tian M.D. 01/08/2021 2:55 PM
--- NOTE | 2021-01-08 16:06 | Electrocardiogram Report ---
Test Reason : Blood Pressure : / mmHG Vent. Rate : 080 BPM Atrial Rate : 300 BPM P-R Int : 000 ms QRS Dur : 074 ms QT Int : 354 ms P-R-T Axes : 000 -38 087 degrees QTc Int : 408 ms Atrial fibrillation with premature ventricular or aberrantly conducted complexes Left axis deviation Low voltage QRS Inferior infarct (cited on or before 03-AUG-2012) Cannot rule out Anteroseptal infarct (cited on or before 19-JUL-2005) Abnormal ECG When compared with ECG of 04-DEC-2020 11:59, Atrial fibrillation has replaced Atrial flutter Vent. rate has increased BY 36 BPM Confirmed by Bebeto Pimentel ([id number]) on 01/08/2021 4:05:48 PM Referred By: REFERRED SELF Confirmed By:Singh Pimentel
[2021-01-08] MEDS ORDERED: ONDANSETRON INJ 2 MG/ML 2 ML VIAL IV PRN (17:37)
[2021-01-08] MEDS ORDERED: PIPERACILL/TAZOBAC CONSULT ACTIVE PRN (17:37)
[2021-01-08] MEDS ORDERED: FERROUS SULFATE 325 MG TAB PO SCH (17:37)
[2021-01-08] MEDS ORDERED: NITROGLYCERIN SL 0.4 MG/TAB TAB SL PRN (17:37)
[2021-01-08] MEDS ORDERED: ACETAMINOPHEN 325 MG TAB PO PRN (17:37)
[2021-01-08] MEDS ORDERED: PIPERACILLIN/TAZOBACTAM 4.5 GM in DEXTROSE 5% 100 ML IV SCH (17:37)
[2021-01-08] MEDS ORDERED: PIPERACILLIN/TAZOBACTAM 3.375 GM in DEXTROSE 5% 100 ML IV ONE (18:30)
[2021-01-08] MEDS: SACUBITRIL-VALSARTAN 49/51 MG TAB PO SCH (19:09)
[2021-01-08] MEDS: RIVAROXABAN 20 MG TAB PO SCH (19:09)
[2021-01-08] MEDS: guaiFENesin 600 MG TABCR PO SCH (19:10)
[2021-01-08] MEDS: ALBUT/IPRATROP 3MG/0.5MG NEB 3 ML VIAL NEB SCH (19:25)
[2021-01-08] MEDS: ATORVASTATIN 40 MG TAB PO SCH (20:33)
[2021-01-08] MEDS: MAGNESIUM OXIDE 400 MG TAB PO SCH (20:33)
[2021-01-08] MEDS: PIPERACILLIN/TAZOBACTAM 3.375 GM in DEXTROSE 5% 100 ML IV SCH (23:51)
[2021-01-09] MEDS: HEPARIN 100 UNIT/ML 5ML FLUSH FLUSH PRN (03:41)
[2021-01-09] MEDS: guaiFENesin 600 MG TABCR PO SCH ×2 (05:59→16:57)
[2021-01-09 06:22] LABS: Basophils # (auto) 0.02 K/uL (0-0.2); Basophils % (auto) 0.3 %; Eosinophils # (auto) 0.13 K/uL (0-0.5); Hematocrit (blood only) 34.1 % (42-52); Hemoglobin 12.2 g/dL (14.0-18.0); Immature Granulocytes # (auto) 0.05 K/uL (0.00-0.02); Immature Granulocytes % (auto) 0.8 %; Lymphocytes # (auto) 0.84 K/uL (1.2-3.4); Lymphocytes % (auto) 12.7 %; Mean Corpuscular Hemoglobin 32.3 pg (25-34); Mean Corpuscular Hgb Conc 35.8 g/dL (32-36); Mean Corpuscular Volume 90.2 fL (80-100); Mean Platelet Volume 9.3 fL (7.4-10.4); Monocytes # (auto) 0.51 K/uL (0.11-0.59); Monocytes % (auto) 7.7 %; Neutrophils # (auto) 5.05 K/uL (1.4-6.5); Neutrophils % (auto) 76.5 %; Platelet Count 224 K/uL (130-400); RDW Coefficient of Variation 14.7 % (11.5-14.5); RDW Standard Deviation 48.4 fL (36.4-46.3); Red Blood Count 3.78 M/uL (4.7-6.1)
[2021-01-09 06:52] LABS: Albumin Level 2.4 gm/dl (3.4-5.0); BUN Creatinine Ratio 13.5 (10-20); Calcium 8.9 mg/dl (8.5-10.1); Creatinine Clr Calc Pharmacy 65.6 ml/min; Est GFR (African American) 78.5 ml/min; Est GFR (Non-African American) 67.7 ml/min; Potassium 3.5 mmol/L (3.5-5.1)
[2021-01-09 06:54] LABS: Albumin Globulin Ratio 0.6 (0.9-2); Bilirubin,Total 0.9 mg/dl (0.2-1); Total Protein 6.4 gm/dl (6.4-8.2)
[2021-01-09] MEDS: ALBUT/IPRATROP 3MG/0.5MG NEB 3 ML VIAL NEB SCH ×5 (07:09→19:51)
[2021-01-09] MEDS: POTASSIUM CHLORIDE 10 MEQ TABCR PO SCH (09:08)
[2021-01-09] MEDS: FUROSEMIDE 20 MG TAB PO SCH (09:08)
[2021-01-09] MEDS: ASPIRIN 81 MG ECTAB PO SCH (09:08)
[2021-01-09] MEDS: METOPROLOL SUCC 25MG EXT REL TAB PO SCH (09:08)
[2021-01-09] MEDS: SACUBITRIL-VALSARTAN 49/51 MG TAB PO SCH ×2 (09:09→16:57)
[2021-01-09] MEDS: PIPERACILLIN/TAZOBACTAM 3.375 GM in DEXTROSE 5% 100 ML IV SCH ×2 (09:09→16:57)
--- NOTE | 2021-01-09 12:45 | Hospitalist Progress Note ---
Date of Service January 09, 2021 Assessment & Plan (1) SOB (shortness of breath): Plan: -I suspect patient does have community-acquired pneumonia. This is likely contributing to his symptoms of cough, weakness, and shortness of breath. He did have a low-grade fever and was marginally hypoxic upon presentation. He has a questionable bandlike opacity that could not differentiate between acute infectious process versus reactive radiation pneumonitis -At any rate, patient symptomatology seems to be improving with IV antibiotic therapy -Continue Zosyn -Continue mucolytic agents -I have added a sputum culture if patient able to provide a sample -Use supplemental oxygen only as needed to keep pulse ox greater or equal to 92% -Order for nebulized treatments already on board (2) Cough: Plan: -See above (3) Weakness: Plan: -See above -Consult PT/OT (4) Elevated troponin: Plan: -Patient with chronic pulmonary emboli seen on imaging. No acute PE noted. thi s could be contributing to his elevated troponin however I suspect is more related to supply/demand ischemia from presumed CAP -I have discussed this with cardiology and no need for additional cardiac work- up at this time -Continue beta-blockade, aspirin, Xarelto, and statin therapy -We will add an echocardiogram to assess for regional wall motion abnormality -Patient established with cardiology. Can follow-up in the clinic upon discharge (5) Chronic systolic CHF (congestive heart failure): Plan: -Currently, patient appears euvolemic -Continue his Lasix as prior to hospitalization along with beta-blockade -BNP was 791 upon presentation without evidence of pulmonary vascular congestion seen on imaging or right-sided symptoms on exam (6) Atrial flutter: Plan: -Currently with controlled rate -Continue to beta-blockade and anticoagulation therapy (7) CAD (coronary artery disease), [place] coronary artery: Plan: -Patient does have a mildly elevated troponin. As stated above, likely supply demand ischemia rather than unstable plaque -Continue beta-blockade, aspirin, statin therapy. On Xarelto -Did discuss this with cardiology who agrees no indication for further cardiac evaluation at this time. Can be followed as an outpatient (8) Malignant neoplasm of lung: Plan: -Follows [facility] oncology/radiation oncology (9) S/P TAVR (transcatheter aortic valve replacement): Plan: -stable (10) Chronic pulmonary embolism: Plan: -Upon further questioning, patient was unaware of this diagnosis. -I do have a call out to his medical oncologist (Dr. Lokesh Collazo) to determine if now would be an indication to transition Xarelto to Coumadin. Awaiting a response) but I suspect that would be the next up -This may be contributing to the mildly elevated troponin as well -No evidence of pulmonary infarction. Patient is hemodynamically stable and not hypoxic Plan: -Continue antibiotic therapy -Continue medical management for underlying CAD with elevated troponin (likely type II event) -? Transition Xarelto to Coumadinawaiting response from oncology -May potentially be ready for discharge tomorrow Admission and Anticipated Discharge Date Admission Date: January 08, 2021 Subjective Patient seen on daily rounds today. He is a 75-year-old white male with a past medical history of lung CA s/p chemo and radiation with subsequent radiation pneumonitis, aortic valve disease s/p TAVR, CAD, atrial fib/flutter on chronic anticoagulation therapy, and CHF. He presented to the ED on 01/08 complaining of a 1 week history of progressive weakness and a productive cough with rust colored sputum. In addition, he had subjective fevers and chills and progressive shortness of breath. Work-up in the ED yielded a low-grade fever of 100.4 F. Pulse ox was 90% on room air. Otherwise he was hemodynamically stable. His white blood cell count was normal. BNP was 791. Blood gas was unremarkable at 7.4 . CTA showed a chronic pulmonary embolism but no acute PE. Bandlike consolidation that could not differentiate between radiation pneumonitis versus acute neoplasm versus acute opacity. In addition, he had progressive adenopathy that could not differentiate between reactive inflammatory process versus metastatic disease. Last, he had a mildly elevated troponin of 0.[address]/T wave changes noted on EKG. He denies chest pain. He was subsequently hospitalized for further evaluation and care Currently is on Zosyn. Overall, he reports that his weakness has "improved by 80%" and he is no longer short of breath. He has not had any fever spikes and his pulse ox today is 95% on room air. He denies shortness of breath or dyspnea on exertion. Still having some rust colored sputum with coughing but overall feels significantly improved. Denies current fevers, chills, chest pain, shortness of breath, abdominal pain, nausea, vomiting, GI/ symptomatology. Review of Systems Review of Systems: All systems reviewed and are unremarkable except as noted in HPI and below Denies fevers, chills, headache, nasal congestion, sore throat, cough, chest pain, shortness of breath, palpitations, orthopnea, PND, abdominal pain, nausea, vomiting, diarrhea, constipation, dysuria, hematuria, frequency, back pain, joint pain or swelling, easy bruising or bleeding, skin lesions or rashes. Physical Exam Physical Exam: General: Resting comfortably in his hospital bed. Does not appear ill or toxic NAD. HEENT: Head is AT/NC buccal mucosa is moist and pink Neck: No JVD. Negative hepatojugular reflex Cardiac: Irregularly irregular with controlled ventricular rate Lungs: Speaking full sentences on ambient air. No accessory muscle use. Currently no wheezes, rales or rhonchi. Negative egophony throughout Abdomen: Normoactive X4. Soft and nontender in all quadrants. Extremities: No peripheral clubbing cyanosis or edema Neuro: A&O X4 cranial nerves II through XII are grossly intact no focal neuro deficits Skin: No obvious skin lesions or rashes Psych: Appropriate affect pleasant and cooperative Results & Data Results & Data ([facility]) Vital Signs (Past 12 Hours) Vital Signs Temp Pulse Pulse Resp BP BP Pulse Ox 01/09/21 11:07 57 L 20 95 01/09/21 10:48 37.2 C 67 16 113/68 93 01/09/21 07:37 37.0 C 79 20 105/52 L 90 01/09/21 07:09 119 H 20 90 01/09/21 07:00 120 H 01/09/21 05:31 37.4 C 70 16 103/54 L 92 Laboratory Results 01/09/21 06:05 01/09/21 06:05 Troponin: 0.050 0.052 0.060 PG Care Time/CCT Total # of Minutes Spent Total Time Spent with Patient: Total time spent is greater than 50% in coordination of care (as documented) at patient's floor/unit and/or counseling patient: Coding [place] [address] Subseq Hosp Care Lvl 3 Patient Type Established History Comprehensive Exam Comprehensive Medical Decision Making High Complexity Diagnoses Weakness R53.1 SOB (shortness of breath) R06.02 Cough R05.9 Elevated troponin R77.8 Chronic systolic CHF (congestive heart failure) I50.22 Atrial flutter I48.92 CAD (coronary artery disease), [place] coronary artery I25.10 Malignant neoplasm of lung C34.12 Laterality: left Lung location: upper lobe of lung S/P TAVR (transcatheter aortic valve replacement) Z95.2 Chronic pulmonary embolism I27.82 (1) Malignant neoplasm of lung Laterality: left Lung location: upper lobe of lung Qualified Code(s): C34.12 - Malignant neoplasm of upper lobe, left bronchus or lung
[2021-01-09] MEDS: RIVAROXABAN 20 MG TAB PO SCH (16:57)
--- NOTE | 2021-01-09 17:33 | XCELERA ---
[id number]
--- NOTE | 2021-01-09 17:49 | Electrocardiogram Report ---
Test Reason : Blood Pressure : / mmHG Vent. Rate : 070 BPM Atrial Rate : 312 BPM P-R Int : 000 ms QRS Dur : 072 ms QT Int : 424 ms P-R-T Axes : 000 -17 099 degrees QTc Int : 457 ms Atrial fibrillation Low voltage QRS Cannot rule out Anteroseptal infarct (cited on or before 19-JUL-2005) possible old inferior ME Abnormal ECG When compared with ECG of 08-JAN-2021 11:08, QT has lengthened Confirmed by Bebeto Pimentel ([id number]) on 01/09/2021 5:49:49 PM Referred By: REFERRED SELF Confirmed By:Singh Pimentel
[2021-01-09] MEDS: MAGNESIUM OXIDE 400 MG TAB PO SCH (21:29)
[2021-01-09] MEDS: ATORVASTATIN 40 MG TAB PO SCH (21:30)
[2021-01-10] MEDS: PIPERACILLIN/TAZOBACTAM 3.375 GM in DEXTROSE 5% 100 ML IV SCH ×2 (00:15→08:34)
[2021-01-10] MEDS: HEPARIN 100 UNIT/ML 5ML FLUSH FLUSH PRN (04:21)
[2021-01-10] MEDS: guaiFENesin 600 MG TABCR PO SCH (05:39)
[2021-01-10 06:06] LABS: Basophils # (auto) 0.02 K/uL (0-0.2); Basophils % (auto) 0.3 %; Eosinophils # (auto) 0.14 K/uL (0-0.5); Eosinophils % (auto) 1.8 %; Hematocrit (blood only) 34.4 % (42-52); Hemoglobin 11.9 g/dL (14.0-18.0); Immature Granulocytes # (auto) 0.04 K/uL (0.00-0.02); Immature Granulocytes % (auto) 0.5 %; Lymphocytes # (auto) 1.01 K/uL (1.2-3.4); Lymphocytes % (auto) 13.2 %; Mean Corpuscular Hemoglobin 31.1 pg (25-34); Mean Corpuscular Hgb Conc 34.6 g/dL (32-36); Mean Corpuscular Volume 89.8 fL (80-100); Mean Platelet Volume 9.9 fL (7.4-10.4); Monocytes # (auto) 0.75 K/uL (0.11-0.59); Monocytes % (auto) 9.8 %; Neutrophils # (auto) 5.69 K/uL (1.4-6.5); Neutrophils % (auto) 74.4 %; Platelet Count 226 K/uL (130-400); RDW Coefficient of Variation 14.7 % (11.5-14.5); RDW Standard Deviation 48.5 fL (36.4-46.3); Red Blood Count 3.83 M/uL (4.7-6.1); White Blood Count 7.65 K/uL (4.8-10.8)
[2021-01-10 06:41] LABS: Albumin Level 2.5 gm/dl (3.4-5.0); BUN Creatinine Ratio 11.3 (10-20); Calcium 8.7 mg/dl (8.5-10.1); Creatinine Clr Calc Pharmacy 61.6 ml/min; Est GFR (African American) 72.8 ml/min; Est GFR (Non-African American) 62.8 ml/min; Magnesium 1.6 mg/dl (1.8-2.4); Potassium 3.5 mmol/L (3.5-5.1)
[2021-01-10 06:42] LABS: Albumin Globulin Ratio 0.6 (0.9-2); Globulin 4.1 gm/dl (2.5-4.0); Total Protein 6.6 gm/dl (6.4-8.2)
[2021-01-10] MEDS: ALBUT/IPRATROP 3MG/0.5MG NEB 3 ML VIAL NEB SCH ×2 (07:18→11:10)
[2021-01-10] MEDS: METOPROLOL SUCC 25MG EXT REL TAB PO SCH (08:30)
[2021-01-10] MEDS: POTASSIUM CHLORIDE 10 MEQ TABCR PO SCH (08:30)
[2021-01-10] MEDS: SACUBITRIL-VALSARTAN 49/51 MG TAB PO SCH (08:30)
[2021-01-10] MEDS: FUROSEMIDE 20 MG TAB PO SCH (08:30)
[2021-01-10] MEDS: ASPIRIN 81 MG ECTAB PO SCH (08:30)
[2021-01-10] MEDS ORDERED: allopurinoL 100 MG TAB PO SCH (09:00)
--- NOTE | 2021-01-10 09:05 | Hospitalist Progress Note ---
Date of Service January 10, 2021 Assessment & Plan (1) SOB (shortness of breath): Plan: -I suspect patient does have pneumonia. Since he has had structural lung changes with COPD and Radiation concern for Gram negative pneumonia. This is likely contributing to his symptoms of cough, weakness, and shortness of breath. He did have a low-grade fever and was marginally hypoxic upon presentation. He has a questionable bandlike opacity that could not differentiate between acute infectious process versus reactive radiation pneumonitisseen on CTA chest from 01/08 -At any rate, patient symptomatology seems to be improving with IV antibiotic therapy -Continue Zosyn -Continue mucolytic agents er or equal to 92% -Order for nebulized treatments already on board (2) Elevated troponin: Plan: -suspect is more related to supply/demand ischemia from pneumonia -previous provider did discussed this with cardiology and no additional in patient cardiac work-up at this time -Continue beta-blockade, aspirin, Xarelto, and statin therapy -Echocardiogram low normal EF 45-50, no regional wall motion abnormality, bioprostetic Ao valve, elevated right heart pressures - Can follow-up in the clinic upon discharge (3) Chronic systolic CHF (congestive heart failure): Plan: -Currently, patient appears euvolemic -Continue Lasix as prior to hospitalization along with beta-blockade -BNP was 791 upon presentation without evidence of pulmonary vascular congestion seen on imaging or right-sided symptoms on exam (4) Atrial flutter: Plan: -Currently with controlled rate -Continue to beta-blockade and anticoagulation therapy (5) CAD (coronary artery disease), [place] coronary artery: Plan: -Patient does have a mildly elevated troponin. As stated above, likely supply demand ischemia rather than unstable plaque -Continue beta-blockade, aspirin, statin therapy. On Xarelto -Did discuss this with cardiology who agrees no indication for further cardiac evaluation at this time. Can be followed as an outpatient (6) Weakness: Plan: -See above -Consult PT/OT (7) Malignant neoplasm of lung: Plan: -Follows [facility] oncology/radiation oncology (8) S/P TAVR (transcatheter aortic valve replacement): Plan: -stable (9) Chronic pulmonary embolism: Plan: -Upon further questioning, patient was unaware of this diagnosis. -will follow up with medical oncologist (Dr. Lokesh Collazo) -No evidence of pulmonary infarction. Patient is hemodynamically stable and not hypoxic Plan: -Continue antibiotic therapy -Continue medical management for underlying CAD with elevated troponin Admission and Anticipated Discharge Date Admission Date: January 08, 2021 Results & Data Results & Data ([facility]) Vital Signs (Past 12 Hours) Vital Signs Temp Pulse Pulse Resp BP Pulse Ox 01/10/21 08:01 98.2 F 125 H 20 108/67 92 01/10/21 07:18 103 H 18 89 L 01/10/21 04:26 98.2 F 101 H 20 122/70 93 01/09/21 23:11 99.1 F 88 20 113/69 92 01/09/21 22:46 121 H PG Care Time/CCT Total # of Minutes Spent Total Time Spent with Patient: Total time spent is greater than 50% in coordination of care (as documented) at patient's floor/unit and/or counseling patient: Coding Diagnoses SOB (shortness of breath) R06.02 Weakness R53.1 Elevated troponin R77.8 Chronic systolic CHF (congestive heart failure) I50.22 Atrial flutter I48.92 CAD (coronary artery disease), [place] coronary artery I25.10 Malignant neoplasm of lung C34.12 Laterality: left Lung location: upper lobe of lung S/P TAVR (transcatheter aortic valve replacement) Z95.2 Chronic pulmonary embolism I27.82 (1) Malignant neoplasm of lung Laterality: left Lung location: upper lobe of lung Qualified Code(s): C34.12 - Malignant neoplasm of upper lobe, left bronchus or lung
[2021-01-10 11:51] VITALS: PULSE 125; TEMP 99.1; O2SAT 92
[2021-01-10 12:52] VITALS: BP 103/54
--- NOTE | 2021-01-10 18:52 | Discharge Summary ---
Date of Service January 10, 2021 Principal Diagnosis Gram-negative pneumonia associate with structural lung disease from radiation pneumonitis and COPD Patient likely has an element of chronic respiratory failure without hypoxemia Discharge Exam The patient appeared well Vital signs as documented. Lungs are poor air movement but no focal loss Cardiac exam, Rhythm is regular.. No murmurs, rubs or gallops. Abdominal exam reveals normal bowel sounds, soft non tender, no masses Extremities are nonedematous and both pedal pulses are normal. Neurologic exam is alert and oriented, no focal loss of strength or sensation Skin is without bruises or rashes Psychologically is without concerns for anxiety or depression. Discharge Data Allergies Allergy/AdvReac Type Severity Reaction Status Date / Time No Known Drug Allergies Allergy Verified 01/08/21 14:07 Consultations 01/08/21 13:20 ED Decision to Admit Stat Ordered Studies 01/08/21 11:18 CT head/brain wo con Stat 01/08/21 14:02 CT angio chest PE protocol Stat Hospital Course (1) SOB (shortness of breath): Gram-negative pneumonia. Since he has had structural lung changes with COPD and Radiation This is likely contributing to his symptoms of cough, weakness, and shortness of breath. He did have a low-grade fever and was marginally hypoxic upon presentation. He has a questionable bandlike opacity that could not differentiate between acute infectious process versus reactive radiation pneumonitisseen on CTA chest from 01/08 She had great improvement with Zosyn will transition to Augmentin patient feels he is capable of going home. Patient did ambulate in the unit and did not have any hypoxemia. We are going to add an anticholinergic agent to his regimen Recommend short-term follow-up (2) Elevated troponin: -related to supply/demand ischemia from pneumonia -Continue beta-blockade, aspirin, Xarelto, and statin therapy -Echocardiogram low normal EF 45-50, no regional wall motion abnormality, bioprostetic Ao valve, elevated right heart pressures - Can follow-up in the clinic upon discharge patient establishing care with Sarah Nixon likely may transition care to [facility] services (3) Chronic systolic CHF (congestive heart failure): -Currently, patient appears euvolemic -Continue Lasix as prior to hospitalization along with beta-blockade -BNP was 791 upon presentation without evidence of pulmonary vascular congestion seen on imaging or right-sided symptoms on exam (4) Atrial flutter: -Currently with controlled rate -Continue to beta-blockade and anticoagulation therapy with Xarelto (5) CAD (coronary artery disease), [place] coronary artery: -Patient does have a mildly elevated troponin. As stated above, likely supply demand ischemia rather than unstable angina or acute coronary syndrome -Continue beta-blockade, aspirin, statin therapy. On Xarelto (6) Weakness: Patient improved with treatment of his pneumonia is able to walk around the unit without difficulty (7) Malignant neoplasm of lung: -[facility] (8) S/P TAVR (transcatheter aortic valve replacement): -stable on echocardiogram (9) Chronic pulmonary embolism: -Upon further questioning, patient was unaware of this diagnosis. -will follow up with medical oncologist (Dr. Lokesh Collazo) -No evidence of pulmonary infarction. Patient is hemodynamically stable and not hypoxic -Continue antibiotic therapy with Augmentin for 7 additional days after discharge Patient instructed on probiotic use Total Time Total Time Spent Total Time Spent (In Minutes): It required greater than 30 minutes to prepare this patient for discharge Discharge Plan Discharge Items Patient Disposition: Home - Home Health Services Reason For Visit: LEFT CHEST PAIN, HYPOXIA, LUNG CA HX Discharge Diagnosis: pneumonia Activity: Resume your previous activity Non-emergency contact: Primary Care Provider Call non-emergency contact if: you have any medication questions and your symptoms worsen Follow-up/Referrals: Meagan Nixon MD [Outside Practitioners] - 01/18/21 3:40 pm (01/18 @ 3:[address] Nixon[address] Diet: Regular Addtl Attending Provider Instructions: please complete all of your antibiotics and follow up with your primary care provider please return if you feel worse in any way and specifically if you have a fever, we have started a new inhaler to continue to support good lung function, but certainly discuss this with Dr Nixon I needed to "re order' your metoprolol for you to continue to take it. Pending Studies at Discharge: No Stand-Alone Forms: My [facility] [employer], Smoking Cessation Medications and DC Order Prescriptions: New metoprolol succinate 25 mg Tablet Extended Release 24 Hr 25 mg PO QAM Qty: 30 RF: 0 amoxicillin-pot clavulanate [Augmentin] 875-125 mg tablet 1 tab PO BID Qty: 14 RF: 0 Spiriva Respimat 1.25 mcg/actuation mist 2 inh inhalation DAILY Qty: 4 RF: 3 Continued nitroglycerin 0.4 mg tablet, sublingual 0.4 mg SL Q5M PRN (Reason: chest pain) Qty: 25 RF: 3 atorvastatin 80 mg tablet 80 mg PO HS RF: 0 fish oil-dha-epa 1,200-144-216 mg Capsule 1 cap PO HS RF: 0 potassium chloride 10 mEq tablet extended release 10 meq PO QAM RF: 0 ferrous sulfate 325 mg (65 mg iron) Tablet,Delayed Release (Dr/Ec) 325 mg PO Q2D RF: 0 albuterol sulfate [Ventolin HFA] 90 mcg/actuation HFA aerosol inhaler 2 puff inhalation Q4H PRN (Reason: Shortness Of Breath Or Wheezing) RF: 0 magnesium oxide [Neely] 500 mg Tablet 500 mg PO HS RF: 0 aspirin 81 mg tablet,delayed release (DR/EC) 81 mg PO QAM RF: 0 furosemide [Lasix] 40 mg tablet 60 mg PO QAM RF: 0 Xarelto 20 mg tablet 20 mg PO QDD@1600 RF: 0 Entresto 49-51 mg tablet 1 tab PO BIDM RF: 0 diclofenac sodium [Voltaren Arthritis Pain] 1 % gel 2 g TOPICAL TID RF: 0 allopurinol [Zyloprim] 100 mg tablet 200 mg PO QAM RF: 0 Discharge Orders: Discharge Order (Routine); Ordered 01/10/21 Ordered By: Jamey Frias Admission Data Admit Date/Time: 01/08/21 14:17 Attending Provider: Jamey Frias Admit Provider: Evan Goss Primary Care Provider: PCP,NO Other Providers: Evan Goss Other Interventions: Discharge Summary Assessment (RN) Last Done: 01/10/21 12:51 Coding Level of Care Code D/C DAY MANAGEMENT >30 MINS Diagnoses SOB (shortness of breath) R06.02 Elevated troponin R77.8 Chronic systolic CHF (congestive heart failure) I50.22 Atrial flutter I48.92 CAD (coronary artery disease), [place] coronary artery I25.10 Weakness R53.1 Malignant neoplasm of lung C34.12 Laterality: left Lung location: upper lobe of lung S/P TAVR (transcatheter aortic valve replacement) Z95.2 Chronic pulmonary embolism I27.82
--- NOTE | 2021-01-11 17:07 | Electrocardiogram Report ---
Test Reason : Blood Pressure : / mmHG Vent. Rate : 083 BPM Atrial Rate : 083 BPM P-R Int : 000 ms QRS Dur : 076 ms QT Int : 356 ms P-R-T Axes : 094 -27 099 degrees QTc Int : 418 ms Atrial fibrillation Low voltage QRS Cannot rule out Inferior infarct , age undetermined Possible Anterolateral infarct (cited on or before 19-JUL-2005) Abnormal ECG When compared with ECG of 09-JAN-2021 06:04, no change Confirmed by Bebeto Pimentel ([id number]) on 01/11/2021 5:07:20 PM Referred By: REFERRED SELF Confirmed By:Singh Pimentel
== END 2021-01-10 14:21 | disposition home health service (06) | DRG 206 ==
LOC: ED 10:40 → 2S 14:17 → SUATTDRO 14:17 → 2S 17:04